=== PATIENT | female | born 1965 | race Caucasian/White ===

== ENCOUNTER → 2020-04-25 20:32 | Outpatient (REF) | payer OTHER, SELFPAY | LOC: HO.SL 20:32 | PROVIDERS: PCP Internal Medicine; Visit Provider Psychiatry & Neurology Neurology | DX: G47.9 Sleep disorder, unspecified (principal) | CPT/HCPCS: 95810 ==

== ENCOUNTER 2020-06-13 07:41 | Outpatient (REF) | payer OTHER, SELFPAY ==
[2020-06-13] VITALS (7 sets, daily range): BP systolic 112–141; BP diastolic 57–82; PULSE 58–77; RESP 16–18; TEMP 36.4–36.9; O2SAT 98–100; BMI 26.6
[2020-06-13] MEDS: Acetaminophen 325 MG TABLET 650 MG PO (09:00)
[2020-06-13 09:49] LABS: CSF Appearance Clear, Colorless; CSF Tube # 1
[2020-06-13 09:55] LABS: Glucose CSF 60 mg/dL
[2020-06-13 10:19] LABS: Appearance CSF CLEAR; CSF Monos 22 %; CSF Tube # 4; CSF Volume 1.8 ML; Color CSF COLORLESS; Lymphocytes CSF 78 %; Red Blood Cell CSF 0 MM*3; White Blood Cell CSF 2 MM*3
== END 2020-06-13 11:00 | disposition home or self-care (01) ==
LOC: HO.MS 07:41
PROVIDERS: PCP Internal Medicine; Visit Provider Psychiatry & Neurology Neurology
PROC: 009U3ZZ Drainage of Spinal Canal, Percutaneous Approach (ICD-10-PCS; CPT 62270; principal; 2020-06-13 08:00)
DX: G93.2 Benign intracranial hypertension (principal); G47.00 Insomnia, unspecified; R51.9 Headache, unspecified; H47.10 Unspecified papilledema; E66.3 Overweight
CPT/HCPCS: 62270; 82945; 84157; 87015; 87070; 87205; 89051

== ENCOUNTER 2020-07-07 12:26 | Outpatient (REF) | payer OTHER, SELFPAY | END 2020-07-07 12:27 | disposition home or self-care (01) | LOC: HO.LAB 12:26 | PROVIDERS: PCP Internal Medicine; Visit Provider Internal Medicine | DX: Z20.828 Contact with and (suspected) exposure to other viral communicable diseases (principal) | CPT/HCPCS: C9803; U0003 ==

== ENCOUNTER 2021-12-05 13:08 | Emergency (ER) | payer OTHER, SELFPAY ==
--- NOTE | 2021-12-05 | ECG_ITS ---
Test Reason : shortness of breath Blood Pressure : / mmHG Vent. Rate : 067 BPM Atrial Rate : 067 BPM P-R Int : 150 ms QRS Dur : 080 ms QT Int : 428 ms P-R-T Axes : 056 023 025 degrees QTc Int : 452 ms Normal sinus rhythm Normal ECG When compared with ECG of 06-AUG-2017 13:25, No significant change was found Referred By: Generic ED Physician Electronically Signed By:NATALY DAWSON MD
--- NOTE | ~2021-12-05 | XR_ITS ---
EXAMINATION: CHEST SINGLE VIEW. RIGHT KNEE 2 VIEWS CLINICAL INFORMATION: Pain. Pain COMPARISON: None TECHNIQUE: Single view of the chest. 2 views of the right knee. FINDINGS: Chest: Lungs clear. Heart and pulmonary vessels are normal. I do not see pneumothorax. 2 views of the right knee show no joint effusion, fracture, dislocation, or destructive process. XR/XR chest 1V IMPRESSION: Unremarkable studies.
--- NOTE | ~2021-12-05 | XR_ITS ---
EXAMINATION: CHEST SINGLE VIEW. RIGHT KNEE 2 VIEWS CLINICAL INFORMATION: Pain. Pain COMPARISON: None TECHNIQUE: Single view of the chest. 2 views of the right knee. FINDINGS: Chest: Lungs clear. Heart and pulmonary vessels are normal. I do not see pneumothorax. 2 views of the right knee show no joint effusion, fracture, dislocation, or destructive process. XR/XR knee RT 2V IMPRESSION: Unremarkable studies.
[2021-12-05 15:47] VITALS: BP 125/88; PULSE 72; RESP 18; TEMP 36.6; O2SAT 99; BMI 29.2
[2021-12-05 16:19] LABS: COVID-19 Test Negative (Negative); IDNOW Serial# 16C4AD1C
[2021-12-05 23:11] LABS: D Dimer High Sensitivity < 150 NG/ML
[2021-12-06 01:53] VITALS: BP 144/83; PULSE 82; RESP 16; TEMP 36.8; O2SAT 95
--- NOTE | 2021-12-06 02:47 | ED.GENADULT ---
HPI - General Adult General Chief complaint: General Medical Stated complaint: PAIN IN R KNEE, SHORTNESS OF BREATH, CHEST PAIN Time Seen by Provider: 12/05/21 16:46 Source: patient Mode of arrival: ambulatory History of Present Illness HPI narrative: 56-year-old female who presents with bilateral lower extremity discomfort without redness or swelling, denies shortness of breath, fever, chills and denies any recent travel. Patient states his his been ongoing for 1 week and her right knee has become progressively more painful. Related Data Allergies Allergy/AdvReac Type Severity Reaction Status Date / Time aspirin [ASA] Allergy Intermediate SWELLING Verified 12/05/21 15:46 Review of Systems Review of Systems: Pertinent positives and negatives as stated in HPI 10 point review of systems is otherwise negative. PMFSH Past Medical History Source: nursing notes reviewed Social History Social History Advance Directives: No Physical Exam ED Vital Signs: Vital Signs - 24 hr 12/05/21 15:47 12/06/21 01:53 Temperature 98 F 98.2 F Pulse Rate 72 82 Respiratory Rate 18 16 Blood Pressure 125/88 144/83 H Pulse Oximetry 99 95 BMI result Body Mass Index 29.2 VITAL SIGNS: Reviewed. GENERAL: Well developed, well nourished, in no acute distress. HEAD: Normocephalic/atraumatic EYES: PERRLA, EOMI EARS: Ext canals without abnormality OROPHARYNX: no oral lesions noted, posterior pharynx clear LUNGS: Normal breath sounds. No adventitious sounds or accessory muscle use. SpO2<99> CARDIOVASCULAR: Regular rate and rhythm without noted murmurs, no JVD or lower extremity edema. ABDOMEN: Soft, non-tender, non-distended with bowel sounds. MUSCULOSKELETAL: No tenderness, deformities, or effusions noted on gross inspection. EXTREMITIES: No cyanosis, clubbing or edema, no erythema/induration, no effusion noted to the right knee and no Green cyst appreciated on examination while patient was standing. SKIN: Inspection of the skin reveals no rashes NEUROLOGIC: Alert and oriented x 4. Strength and sensation to light touch were grossly intact x 4. Course Course Course Narrative: 56-year-old female with history and clinical presentation consistent with osteoarthritis, D-dimer was negative and review of all imaging studies without acute findings. Patient will receive Flaquito wrap to the right knee as well as 1 g of Tylenol. Patient is aware the plan and will be following up with her primary care provider. Medical Decision Making Lab Data Labs: Lab Results 12/05/21 12/05/21 Range/Units 15:56 22:45 D-Dimer High Sensitivty < 150 NG/ML COVID-19 ([facility]) Negative (Negative) COVID-19 Clin Com See Note Discharge Plan Discharge Clinical Impression: Bilateral leg pain, Pain in right knee Patient Disposition: Home, Self-Care Instructions: Leg Pain (ED), Knee Pain (ED), Osteoarthritis (ED) Additional Instructions: 1. Resume all home medications as prescribed. 2. Tylenol 1000 mg, orally, every 6 hours as needed for pain control. Do not exceed 4000 mg within 24 hours. 3. Continue to use the Flaquito wrap or an lhgq-knw-soerfae knee support until you are evaluated by your primary care provider. 4. Consider bpaf-kvc-kqkklbd lidocaine gel, 4%, for additional pain relief. 5. Follow-up with primary care provider in the next 1-2 days for re-evaluation. Return to the ER for worsening symptoms. Referrals: Hitesh Goldberg III, MD [Primary Care Provider] -
[2021-12-06] MEDS: Acetaminophen 325 MG TABLET 975 MG PO (03:27)
--- NOTE | 2021-12-06 03:28 | PC.NURSE ---
medicated per provider order.
== END 2021-12-06 03:29 | disposition home or self-care (01) ==
PROVIDERS: Emergency Provider Student in an Organized Health Care Education/Training Program; PCP Internal Medicine
DX: M25.561 Pain in right knee (principal); M79.605 Pain in left leg; M79.604 Pain in right leg; R06.02 Shortness of breath; Z20.822 Contact with and (suspected) exposure to COVID-19
CPT/HCPCS: 36415; 71045; 73560; 85379; 87635; 93005; 99283

== ENCOUNTER 2022-04-26 18:15 | Emergency (ER) | payer OTHER, SELFPAY ==
--- NOTE | ~2022-04-26 | XR_ITS ---
EXAMINATION: XR CHEST CLINICAL INFORMATION: Chest pain COMPARISON: 12/05/2021 TECHNIQUE: Frontal view of the chest was obtained. FINDINGS: The lungs are well-expanded. There is no focal consolidation, edema or effusion. No pneumothorax. The cardiomediastinal silhouette is within normal limits. No acute osseous abnormality. XR/XR chest 1V IMPRESSION: No acute pulmonary disease.
[2022-04-26 18:50] VITALS: BP 169/88; PULSE 84; RESP 16; TEMP 36.6; O2SAT 100; BMI 26.6
--- NOTE | 2022-04-26 18:55 | ECG_ITS ---
Test Reason : CHESTPAIN Blood Pressure : / mmHG Vent. Rate : 063 BPM Atrial Rate : 063 BPM P-R Int : 158 ms QRS Dur : 084 ms QT Int : 432 ms P-R-T Axes : 067 064 059 degrees QTc Int : 442 ms Normal sinus rhythm Nonspecific ST abnormality Abnormal ECG When compared with ECG of 05-DEC-2021 15:46, ST more depressed Lateral leads Referred By: Generic ED Physician Electronically Signed By:MARLEN OLSON MD
[2022-04-26] MEDS: Ondansetron ODT 4 MG TAB.RAPDIS TRANSLINGU (19:09)
[2022-04-26 19:12] LABS: MANUAL DIFF FLAG NO
[2022-04-26 19:19] LABS: Basophils Absolute Auto 0.1 X10*3/uL (0.0-0.2); Basophils Percent Auto 0.4 % (0-2); Eosinophils Absolute Auto 0.2 X10*3/uL (0.0-0.4); Eosinophils Percent Auto 1.3 % (0-4); Hematocrit 38.8 % (37.0-47.0); Hemoglobin 12.9 g/dl (12.0-16.0); Imm Gran Abs Auto 0.05 X10*3/uL (0.00-0.03); Imm Gran Pct Auto 0.4 % (0.0-0.4); Lymphocytes Absolute Auto 3.7 X10*3/uL (1.2-4.9); Lymphocytes Percent Auto 32.5 % (20-40); Mean Corpuscular HGB Conc 33.2 g/dl (31.0-35.0); Mean Corpuscular Hemoglobin 29.8 pg (27.0-33.0); Mean Corpuscular Volume 89.6 fL (80.0-98.0); Mean Platelet Volume 9.7 fL (9.4-12.3); Monocytes Absolute Auto 0.6 X10*3/uL (0.1-1.2); Monocytes Percent Auto 5.3 % (2-11); Neutrophils Absolute Auto 6.9 x10*3/uL (2.0-8.3); Neutrophils Percent Auto 60.1 % (45-73); Platelet Count 377 X10*3/uL (160-400); Red Blood Count 4.33 X10*6/uL (4.20-5.50); Red Cell Distribution Width 12.7 % (11.0-16.0); White Blood Count 11.5 X10*3/uL (4.8-10.8)
[2022-04-26 19:33] LABS: Alanine Aminotransferase 31 U/L (0-31); Albumin Level 4.7 g/dL (3.5-5.0); Alkaline Phosphatase 91 U/L (39-117); Anion Gap 13 (12-20); Aspartate Amino Transferase 18 U/L (5-31); Bilirubin Total 0.3 mg/dL (0.0-1.0); Blood Urea Nitrogen 14 mg/dL (9-16); Calcium 9.9 mg/dL (8.4-10.2); Carbon Dioxide 25 mmol/L (22-29); Chloride 108 mmol/L (96-108); Creatinine Clr Calc Pharmacy 68.9; Estimated Glomerular Filt Rate > 60; Glucose Random 95 mg/dL (60-115); Lipase 30 U/L (8-78); Magnesium 2.1 mg/dL (1.6-2.6); Sodium 142 mmol/L (135-145); Total Protein 6.9 g/dL (6.5-8.0)
[2022-04-26 19:35] LABS: Troponin-I High Sensitivity < 3.5 ng/L (<3.5-17.0)
--- NOTE | 2022-04-27 00:02 | ED.CHESTPAIN ---
HPI - Chest Pain General Chief Complaint: Chest Pain Stated Complaint: dizziness,nausea Time Seen by Provider: 04/26/22 23:51 Source: patient Mode of arrival: ambulatory Limitations: no limitations History of Present Illness HPI narrative: 56-year-old female with a history of pseudotumor cerebri on diamox presents today with 2 episodes of chest pain which occurred earlier today while at rest. Patient describes the pain is of punching sensation to the left chest which lasted a 2nd and resolved. No associated symptoms when the pain came on. Patient has had some intermittent episodes over the last month. Two weeks ago she had an echo and a stress test at [facility] which patient tells me was normal. She does have an upcoming appointment to see a batt packer. She reports since having the pain she has had some nausea and dizziness but these symptoms are actually improved than previously. No associated vomiting, diaphoresis, palpitations. Patient denies any recent travel or sick contact. No OCP use. Related Data Allergies Allergy/AdvReac Type Severity Reaction Status Date / Time aspirin [ASA] Allergy Intermediate SWELLING Verified 12/05/21 15:46 Review of Systems Review of Systems: Yes all other systems are reviewed and are negative Constitutional: Constitutional: Reports no additional constitutional complaints, Denies body ache(s), Denies chills, Denies fever(s), Denies headache(s) and Denies weakness Eyes: Eyes: Reports no additional eye complaints and Denies change in vision ENT: Reports system reviewed and no additional complaints, except as documented, Reports dizziness, Denies headache(s), Denies nasal congestion, Denies nasal discharge and Denies neck pain Cardiovascular: Cardiovascular: Reports no additional cardiovascular complaints, Reports chest pain, Denies leg edema and Denies dyspnea Respiratory: Respiratory: Reports no additional respiratory complaints, Denies cough and Denies dyspnea Gastrointestinal: Gastrointestinal: Reports no additional gastrointestinal complaints, Denies abdominal pain, Denies diarrhea, Reports nausea and Denies vomiting Genitourinary: Genitourinary: Reports no additional female genitourinary complaints and Denies urinary incontinence Musculoskeletal: Musculoskeletal: Reports no additional musculoskeletal complaints, Denies back pain, Denies arthralgias, Denies joint swelling, Denies neck pain, Denies numbness and Denies tingling Integumentary/Breasts: Skin/Breast: Reports system reviewed and no additional complaints, except as docu and Denies rash Neurologic: Reports system reviewed and no additional complaints, except as documented, Denies Abnormal speech present, Reports dizziness, Denies headache(s), Denies numbness, Denies tingling and Denies weakness PMFSH Past Medical History Attestation statement: The following information was validated with the patient. Source: old records reviewed and nursing notes reviewed Social History Social History Advance Directives: No Advance Directives Information Provided: No Physical Exam Vital Signs: Vital Signs: Last Vital Signs Temp 97.8 F 04/26/22 18:50 Pulse 84 04/26/22 18:50 Resp 16 04/26/22 18:50 BP 169/88 H 04/26/22 18:50 Pulse Ox 100 04/26/22 18:50 O2 Del Method 04/26/22 18:50 BMI result Body Mass Index 26.6 Const: General: cooperative, healthy appearing, comfortable and no acute distress Orientation/consciousness: patient oriented x3 Limitations: no limitations HEENT: Head: Yes normal to inspection Ears: hearing grossly normal bilaterally General nose exam: Normal external nose present Face and sinus: Yes normal facial exam Mouth: Normal oral and palatal mucosa present Throat: Yes posterior oropharynx normal Eyes: General: appearance normal, both eyes and all related structures Pupils: Equal, round and reactive pupils present Neck: Neck: Yes normal visual inspection Chest: Chest palpation & inspection: normal inspection of the chest Resp: Effort & Inspection: normal respiratory effort Auscultation: clear to auscultation bilaterally Cardio: Rate: regular rate Rhythm: regular rhythm Peripheral pulses: Peripheral pulses 2+ throughout GI: Inspection: Yes normal to inspection Palpation (GI): Soft to palpation and nontender Auscultation: normal bowel sounds Back/Spine/Pelvis: Thoracic/Lumbar Spine: thoracic and lumbar spine normal to inspection Skin: General skin exam: no rashes or lesions noted Neuro: General: patient oriented x3, no focal motor deficits and normal sensation to monofilament Cranial nerves: Yes Equal, round and reactive pupils present Cognition (Neuro): normal cognition Speech: No Abnormal speech present Gait exam (Neuro): Normal gait present Motor exam (neuro): 5/5 motor strength present throughout Extrem: General: Yes normal to inspection, Yes no pedal edema and Yes no calf tenderness Course Course Course Narrative: Labs are unremarkable including troponin. EKG shows no ischemic changes. Chest x-ray is negative for any infection. Plan for discharge home with patient's follow-up with her batt packer outpatient. Reviewed worrisome signs and symptoms of when to return to the emergency room. Comfortable discharge home. MDM - Chest Pain MDM Narrative Medical decision making narrative: 56 yo female who presents with intermittent left-sided chest pain over the last month with negative stress test and echo per patient with after coming appointment with Cardiology at [facility]. Patient had some brief episodes today which occurred while at rest. Low concern for ACS Perc is 0. Will check labs, EKG, chest x-ray Medical Records Data Attestation: I reviewed the patient's medical records. Lab Data Attestation: I reviewed the patient's lab results. Result diagrams: 04/26/22 19:05 04/26/22 19:05 Labs: Lab Results 04/26/22 04/26/22 04/26/22 Range/Units 19:05 19:05 19:05 WBC 11.5 H (4.8-10.8) X10*3/uL RBC 4.33 (4.20-5.50) X10*6/uL Hgb 12.9 (12.0-16.0) g/dl Hct 38.8 (37.0-47.0) % MCV 89.6 (80.0-98.0) fL MCH 29.8 (27.0-33.0) pg MCHC 33.2 (31.0-35.0) g/dl RDW 12.7 (11.0-16.0) % Plt Count 377 (160-400) X10*3/uL MPV 9.7 (9.4-12.3) fL Immature Gran % (Auto) 0.4 (0.0-0.4) % Neut % (Auto) 60.1 (45-73) % Lymph % (Auto) 32.5 (20-40) % Thurston % (Auto) 5.3 (2-11) % Eos % (Auto) 1.3 (0-4) % Baso % (Auto) 0.4 (0-2) % Lymph # (Auto) 3.7 (1.2-4.9) X10*3/uL Thurston # (Auto) 0.6 (0.1-1.2) X10*3/uL Eos # (Auto) 0.2 (0.0-0.4) X10*3/uL Baso # (Auto) 0.1 (0.0-0.2) X10*3/uL Abs Immat Gran (auto) 0.05 H (0.00-0.03) X10*3/uL Absolute Neuts (auto) 6.9 (2.0-8.3) x10*3/uL Absolute Nucleated RBC 0.000 (0.0-0.012) X10*3/uL Nucleated RBC % (auto) 0.0 (0.0-0.2) /100WBC Sodium 142 (135-145) mmol/L Potassium 4.0 (3.3-5.1) mmol/L Chloride 108 (96-108) mmol/L Carbon Dioxide 25 (22-29) mmol/L Anion Gap 13 (12-20) BUN 14 (9-16) mg/dL Creatinine 0.91 (0.5-1.4) mg/dL Estim Creat Clear Calc 68.9 Estimated GFR > 60 Random Glucose 95 (60-115) mg/dL Calcium 9.9 (8.4-10.2) mg/dL Magnesium 2.1 (1.6-2.6) mg/dL Total Bilirubin 0.3 (0.0-1.0) mg/dL AST 18 (5-31) U/L ALT 31 (0-31) U/L Alkaline Phosphatase 91 (39-117) U/L Troponin I High Sens < 3.5 (<3.5-17.0) ng/L Total Protein 6.9 (6.5-8.0) g/dL Albumin 4.7 (3.5-5.0) g/dL Lipase 30 (8-78) U/L Imaging Data Chest x-ray: Attestation: I personally reviewed and interpreted this imaging study as follows: Radiologist's impression: [address] [address] XRay Report Signed Patient: Risa Robledo MR#: [id number] : 1965 Acct:[id number] Age/Sex: 56 / F ADM Date: 04/26/22 Loc: HO.ED Attending Dr: Ordering Physician: Nasima ED Physician Date of Service: 04/26/22 Procedure(s): XR chest 1V Accession Number(s): [id number] cc: Generic ED Physician~ EXAMINATION: XR CHEST CLINICAL INFORMATION: Chest pain COMPARISON: 12/05/2021 TECHNIQUE: Frontal view of the chest was obtained. FINDINGS: The lungs are well-expanded. There is no focal consolidation, edema or effusion. No pneumothorax. The cardiomediastinal silhouette is within normal limits. No acute osseous abnormality. XR/XR chest 1V IMPRESSION: No acute pulmonary disease. ? ? ECG Data ECG #1: Attestation: I personally reviewed and interpreted this ECG as follows: ECG interpretation date: 04/27/22 ECG interpretation time: 18:57 Interpretation: Normal sinus rhythm with a rate of 63, normal RI, normal QRS, normal QT Discharge Plan Discharge Clinical Impression: Chest pain Patient Disposition: Home, Self-Care Instructions: Chest Pain (DC) Additional Instructions: Your blood work, EKG and chest x-ray are reassuring Follow-up with your plan to see Cardiology outpatient Referrals: Hitesh Goldberg III, MD [Primary Care Provider] - Interventions: ED Discharge Assessment Last Done: 04/27/22 00:11 Discharge Date/Time: 04/27/22 00:13
== END 2022-04-27 00:13 | disposition home or self-care (01) ==
PROVIDERS: Emergency Provider Emergency Medicine; PCP Internal Medicine
DX: R07.89 Other chest pain (principal); R42 Dizziness and giddiness; R11.2 Nausea with vomiting, unspecified; Z79.899 Other long term (current) drug therapy
CPT/HCPCS: 36415; 71045; 80053; 83690; 83735; 84484; 85025; 93005; 99283

== ENCOUNTER 2023-11-23 10:39 | Outpatient (AMB) | payer OTHER, SELFPAY ==
[2023-11-23 12:37] VITALS: BP 118/70; PULSE 57; TEMP 37.1; O2SAT 99; BMI 28.5
--- NOTE | 2023-11-23 12:37 | MHC.OFFWIV ---
Intake Vital Signs 11/23/23 12:37 Height 5 ft 5 in Weight 171 lb BMI 28.5 BP 118/70 Blood Pressure Location Lt brachial Position Sitting Pulse 57 Pulse Source Pulse Oximeter Temp 98.7 F Temp Source Oral Pulse Oximetry (%) 99 Oxygen Delivery Method Room Air Intake Visit Reasons: DIRECTOR TRIAL lft foot toenail fell off/irritated Intake Note: Pt is here today Lt foot middle toe red and swollen Allergies aspirin [ASA] Allergy (Intermediate, Verified 12/25/23 14:21) SWELLING HPI DIRECTOR TRIAL lft foot toenail fell off/irritated HPI Details Patient is a 58 year female who comes to the walk-in clinic complaining of redness and mild swelling and tenderness to the left 3rd toenail area. She does not know why the toenail fell off, and denies acute trauma, but it has been tender and red and a little swollen. [facility] Social History Comment: Tylenol was given at 0900 Advance Directives: No Advance Directives Information Provided: No Physical Exam Vital Signs: Last Vital Signs Temp 98.7 F 11/23/23 12:37 Pulse 57 11/23/23 12:37 BP 118/70 11/23/23 12:37 Pulse Ox 99 11/23/23 12:37 Oxygen Delivery Method Room Air 11/23/23 12:37 BMI result Body Mass Index 28.5 Skin Other: Patient has small nail starting to regrow to the left 3rd nail bed, with no laceration or other trauma. There is air erythema edema to the medial aspect of the distal toe, only mildly tender to touch. No appreciable warmth. Sensation is intact and pedal and pulse is normal. Heavy toenail [place]an limits view of nail changes to the other toes, however there is some thickening of the big toe that suggest possible underlying fungal involvement. Assessment & Plan Assessment & Plan (1) Cellulitis: Code(s): L03.90 - Cellulitis, unspecified Qualifiers: Site of cellulitis of extremity: toe Laterality: left Site of cellulitis: extremity Qualified Code(s): L03.032 - Cellulitis of left toe Plan Patient with apparent cellulitis to the distal aspect of the left 3rd toe. The toenail looks like it fell and is already starting to grow back. There is questionable fungal growth on other toenails, however they have heavy [place] covering them and it limits view of fungal changes. We discussed starting an antibiotic to help with the infection, and she can soak her foot a few times a day in Epsom salt or warm soapy water to help with the regrowth of the toenail. There was no apparent acute trauma, and she denies diabetes. Her sensation is intact and she has no pain with ambulation, so underlying bony trauma unlikely. Follow up as needed if symptoms persist or worsen Medications: New cephalexin 500 mg PO BID 20 caps 0RF 10 days Coding Level of Care Code New Pt Level 4 (22829) Diagnoses Cellulitis of toe of left foot L03.032 Site of cellulitis of extremity: toe Laterality: left Site of cellulitis: extremity
== END 2023-11-23 13:43 | disposition home or self-care (01) ==
PROVIDERS: PCP Internal Medicine; Visit Provider Physician Assistant Medical
DX: L03.032 Cellulitis of left toe (principal)
CPT/HCPCS: 99051; 99204

== ENCOUNTER 2023-12-25 14:15 | Emergency (ER) | payer OTHER, SELFPAY ==
--- NOTE | ~2023-12-25 | XR_ITS ---
EXAMINATION: XR FOOT, LEFT CLINICAL INFORMATION: Left-sided foot pain COMPARISON: None available. TECHNIQUE: AP, lateral, and oblique views of the left foot. FINDINGS: There is an oblique mildly displaced fracture of the midshaft of the proximal phalanx of the fourth toe. Fracture does not involve the articular surfaces of bone. No dislocation. XR/XR foot LT min 3V IMPRESSION: Oblique mildly displaced fracture of the proximal phalanx of fourth toe.
[2023-12-25 14:17] VITALS: BP 150/86; PULSE 93; RESP 18; TEMP 36.9; O2SAT 99; BMI 28.2
--- NOTE | 2023-12-25 14:18 | ED_ITS ---
HPI - General Adult General Chief complaint: Extremity Injury, Lower Stated complaint: l foot inj Time Seen by Provider: 12/25/23 14:40 Source: patient Mode of arrival: ambulatory Limitations: no limitations History of Present Illness ED Provider: Josiah Spencer PA-C HPI narrative: 58 yo fw/o pmhx presents w/ left fourth toe pain since earlier today she states that she stubbed her toe on a chair now is having severe pain and difficulties w/ ambulating. Thinks her finger looks swollen. Pain 04/16. Denies cp, sob, numbness, tingling. No other injuries. Related Data Home Medications ?Medication ?Instructions ?Recorded ?Confirmed atorvastatin 20 mg tablet 20 mg PO DAILY 11/23/23 cetirizine 10 mg tablet mg PO 11/23/23 omeprazole 20 mg capsule,delayed 20 mg PO DAILY 11/23/23 release Previous Rx's ?Medication ?Instructions ?Recorded cephalexin 500 mg capsule 500 mg PO BID 10 days #20 caps 11/23/23 Allergies Allergy/AdvReac Type Severity Reaction Status Date / Time aspirin [ASA] Allergy Intermediate SWELLING Verified 12/25/23 14:21 Review of Systems Review of Systems: Yes all other systems are reviewed and are negative PMFSH Past Medical History Attestation statement: The following information was validated with the patient. Source: old records reviewed and nursing notes reviewed Social History Social History Comment: Tylenol was given at 0900 Physical Exam ED Vital Signs: Vital Signs - 24 hr 12/25/23 14:17 Temperature 98.4 F Pulse Rate 93 Respiratory Rate 18 Blood Pressure 150/86 H Pulse Oximetry 99 Oxygen Delivery Method Room Air BMI result Body Mass Index 28.2 VSS Appearance: Alert.? Oriented X3.? No acute distress.? Head: Normocephalic, atraumatic, no step-offs or deformities Eyes: Pupils equal, round and reactive to light.? CVS: Normal heart rate and rhythm.? Pulses normal.? Respiratory: No respiratory distress.? Breath sounds normal.? Abdomen: Soft and nontender.? Skin: Skin warm and dry.? Normal skin color.? Normal skin turgor.? Extremities: No lower extremity edema.? No calf ttp. 5/5 strength to bilateral upper and lower extremities 2+ DP,AT,PT pulses equal and b/l. Normal sensation distally. TTP to left second toe w/ overlying swelling. Full rom to all toes w/ discomfort w/ rom of left second toe. Neuro: Oriented X 3.? No motor deficit.? No sensory deficit. CN 2-12 intact Course Course Course Narrative: This is an RME done by VITA Spencer: Additional HPI, ROS, PE not included below will be deferred to primary provider. 58 yo f presents w/ left fourth toe pain since earlier stubberd her toe on a chair now severe pain and difficulties ambulating Appearance: Alert.? Oriented X3.? No acute cardiopulmonary distress distress.? Head: Normocephalic, atraumatic, no step-offs or deformities Neck: Normal inspection.? Neck supple.? CVS: Pulses normal.? Respiratory: No respiratory distress.? Abdomen: Soft and nontender.? Skin: ? Normal skin color. Extremities: 5/5 strength to bilateral upper and lower extremities + swelling to left 4th digit. No ecchymosis normal rom to all toes. ambulatory w/ steady gait slight limp favorng r side Neuro: Oriented X 3.? No motor deficit.? No sensory deficit. Reevaluation(s) Reevaluation #1: + fx noted on xray r second toe where patient has pain. Will give Tylenol. Will also give postop shoe, crutches. Educated patient on diagnosis and treatment plan, answered all question, patient verbalizes understanding. At this time patient will be discharged home, advised to return with new or worsening symptoms. Educated on worrisome signs and symptoms and when to return. At this time I feel comfortable discharge home. Time: 14:45 Medical Decision Making Medical Decision Making [facility] Narrative: [id number] 58 year old female presents w/ left second toe pain since earlier today sp stubbing her toe on a chair PE 2+ DP,AT,PT pulses equal and b/l. Normal sensation distally. TTP to left second toe w/ overlying swelling. Full rom to all toes w/ discomfort w/ rom of left second toe. Hx and pe concerning for fx possible dislocaiton. No signs of NV compromise or threat to limb. No signs of compartment syndrome Plan- imaging tylenol Differential Diagnosis Differential Diagnoses: The differential diagnosis associated with the presentation includes Hx and pe concerning for fx possible dislocaiton. No signs of NV compromise or threat to limb. No signs of compartment syndrome Admission/Observation Consideration of admission/observation: Escalation of care including admission/observation considered no indication Independent Interpretation I performed an independent interpretation of an: Plain X-Ray Radiology Impression Discussion of test interpretation with radiology: I have reviewed the radiologist's reading. External Record Review External record reviewed: Office record and Outpatient record Prescription Management I considered prescription management with: Pain Medication (tylenol ) Critical Care Time Critical Care Time Critical Care Time: No Discharge Plan Discharge Clinical Impression: Fracture of toe Patient Disposition: Home, Self-Care Instructions: Crutch Instructions (ED), Foot Fracture in Adults (ED), R.I.C.E. Treatment (ED), Post Surgical Shoe (ED) Additional Instructions: Take your medications as prescribed. If you were prescribed antibiotics today, it is important that you take your medication to their entirety, do not skip any doses, do not finish them early. Follow-up with your primary care provider this week. Return to the emergency department with new or worsening symptoms. Such as fevers, chills, chest pain, shortness of breath, nausea, vomiting, dizziness, headache, vision changes, lethargy In case of emergency call 911 Prescriptions: No Action atorvastatin 20 mg tablet 20 mg PO DAILY cetirizine 10 mg tablet PO omeprazole 20 mg capsule,delayed release(DR/EC) 20 mg PO DAILY cephalexin 500 mg capsule 500 mg PO BID 10 Days Qty: 20 0RF Referrals: [facility] [Provider Group] - 1 week Hitesh Goldberg III, MD [Primary Care Provider] - 2 days Print Language: Citizen Of [place]
[2023-12-25] MEDS: Acetaminophen 325 MG TABLET 975 MG PO (15:09)
[2023-12-25 15:38] VITALS: BP 150/86; PULSE 93; RESP 18; TEMP 36.9; O2SAT 99
== END 2023-12-25 15:39 | disposition home or self-care (01) ==
LOC: HO.ED 15:05
PROVIDERS: Emergency Provider Emergency Medicine; PCP Internal Medicine
DX: S92.502A Displaced unspecified fracture of left lesser toe(s), initial encounter for closed fracture (principal); Y29.XXXA Contact with blunt object, undetermined intent, initial encounter; Y93.9 Activity, unspecified; Y92.9 Unspecified place or not applicable; Y99.8 Other external cause status; Z79.899 Other long term (current) drug therapy
CPT/HCPCS: 73630; 99283

== ENCOUNTER 2024-01-12 13:27 | Emergency (ER) | payer OTHER, SELFPAY ==
--- NOTE | ~2024-01-12 | XR_ITS ---
EXAMINATION: XR CHEST CLINICAL INFORMATION: Chest pressure COMPARISON: April 2022 TECHNIQUE: 2 views of the chest were obtained. FINDINGS: No significant abnormality is noted involving the heart, lungs, mediastinum, bony thorax or soft tissues. XR/XR chest 2V IMPRESSION: Unremarkable examination, without interval change.
[2024-01-12 13:31] VITALS: BP 174/90; PULSE 65; RESP 18; TEMP 36.7; O2SAT 99; BMI 28.1
--- NOTE | 2024-01-12 13:34 | ECG_ITS ---
Test Reason : CHEST PRESSURE Blood Pressure : / mmHG Vent. Rate : 067 BPM Atrial Rate : 067 BPM P-R Int : 154 ms QRS Dur : 076 ms QT Int : 410 ms P-R-T Axes : 033 021 019 degrees QTc Int : 433 ms Normal sinus rhythm Normal ECG When compared with ECG of 26-APR-2022 18:57, No significant change was found Referred By: Generic ED Physician Electronically Signed By:Nicholas Romero
[2024-01-12 13:46] LABS: MANUAL DIFF FLAG NO
[2024-01-12 13:56] LABS: INTERNATIONAL NORM RATIO 0.9 (0.9-1.1); Prothrombin Time 11.2 SEC (11.1-13.3)
[2024-01-12 14:02] LABS: Alanine Aminotransferase 63 U/L (0-31); Albumin Level 4.6 g/dL (3.5-5.0); Alkaline Phosphatase 110 U/L (39-117); Anion Gap 15 (12-20); Aspartate Amino Transferase 28 U/L (5-31); Bilirubin Total 0.3 mg/dL (0.0-1.0); Blood Urea Nitrogen 13 mg/dL (9-16); Calcium 10.2 mg/dL (8.4-10.2); Carbon Dioxide 27 mmol/L (22-29); Chloride 106 mmol/L (96-108); Creatinine Clr Calc Pharmacy 74.6; Estimated Glomerular Filt Rate > 60; Glucose Random 99 mg/dL (60-115); Potassium 3.9 mmol/L (3.3-5.1); Sodium 144 mmol/L (135-145); Total Protein 7.1 g/dL (6.5-8.0)
[2024-01-12 14:04] LABS: Basophils Percent Auto 0.2 % (0-2); Eosinophils Absolute Auto 0.1 X10*3/uL (0.0-0.4); Eosinophils Percent Auto 0.9 % (0-4); Hematocrit 39.9 % (37.0-47.0); Hemoglobin 13.3 g/dl (12.0-16.0); Imm Gran Abs Auto 0.05 X10*3/uL (0.00-0.03); Imm Gran Pct Auto 0.5 % (0.0-0.4); Lymphocytes Absolute Auto 2.9 X10*3/uL (1.2-4.9); Lymphocytes Percent Auto 30.3 % (20-40); Mean Corpuscular HGB Conc 33.3 g/dl (31.0-35.0); Mean Corpuscular Volume 89.9 fL (80.0-98.0); Mean Platelet Volume 9.5 fL (9.4-12.3); Monocytes Absolute Auto 0.4 X10*3/uL (0.1-1.2); Monocytes Percent Auto 4.4 % (2-11); Neutrophils Absolute Auto 6.1 x10*3/uL (2.0-8.3); Neutrophils Percent Auto 63.7 % (45-73); Platelet Count 351 X10*3/uL (160-400); Red Blood Count 4.44 X10*6/uL (4.20-5.50); Red Cell Distribution Width 12.6 % (11.0-16.0); White Blood Count 9.5 X10*3/uL (4.8-10.8)
[2024-01-12 14:09] LABS: Troponin-I High Sensitivity < 2.7 ng/L (<3.5-17.0)
--- NOTE | 2024-01-12 14:23 | ED_ITS ---
HPI - Chest Pain General Chief Complaint: Chest Pain Stated Complaint: high bp Time Seen by Provider: 01/12/24 14:23 Source: patient and banking attorney (all interactions with this patient were facilitated with an [facility] machine i trimmer) Mode of arrival: ambulatory Limitations: language barrier (all interactions with this patient were facilitated with an [facility] machine i trimmer) History of Present Illness ED Provider: Shannon Meredith PA-C HPI narrative: Patient is a 58 year old assigned female at with no reported medical history presenting to the emergency department today with chest pressure and nausea. Patient states that over the last 3 days she has had chest pressure and nausea. Patient denies any dizziness, lightheadedness, abdominal pain, vomiting, fever, chills, blurry vision, double vision, loss of vision, difficulty breathing, shortness of breath, back pain, night sweats, pain with urination, increased urinary frequency, increased urinary urgency, blood in her urine or stool, syncope or a near syncopal episode, recent trauma or falls, bowel incontinence, bladder incontinence, or any other complaints at this time. Pain radiation: none Relieving factors: nothing Exacerbating factors: nothing Associated symptoms: nausea Treatment prior to arrival: none Related Data Home Medications ?Medication ?Instructions ?Recorded ?Confirmed atorvastatin 20 mg tablet 20 mg PO DAILY 11/23/23 cetirizine 10 mg tablet mg PO 11/23/23 omeprazole 20 mg capsule,delayed 20 mg PO DAILY 11/23/23 release Previous Rx's ?Medication ?Instructions ?Recorded cephalexin 500 mg capsule 500 mg PO BID 10 days #20 caps 11/23/23 acetaminophen 325 mg capsule 650 mg (2 x 325 mg) PO TID PRN 12/25/23 (Tylenol) pain #30 caps Allergies Allergy/AdvReac Type Severity Reaction Status Date / Time aspirin [ASA] Allergy Intermediate SWELLING Verified 01/12/24 13:34 Review of Systems 2 Constitutional: Constitutional: Reports no additional constitutional complaints, Denies chills, Denies fever(s) and Denies night sweats Eyes: Eyes: Reports no additional eye complaints, Denies blurry vision, Denies change in vision, Denies diplopia, Denies eye discharge, Denies loss of vision and Denies eye pain ENT: Denies dizziness Cardiovascular: Cardiovascular: Reports no additional cardiovascular complaints, Reports chest pain, Denies lightheadedness, Denies Loss of Consciousness and Denies dyspnea Respiratory: Respiratory: Reports no additional respiratory complaints and Denies dyspnea Gastrointestinal: Gastrointestinal: Reports no additional gastrointestinal complaints, Denies abdominal pain, Denies melena, Denies hematochezia, Denies change in bowel habits, Denies change in stool character, Reports nausea and Denies vomiting Genitourinary: Genitourinary: Denies hematuria, Denies urinary frequency, Denies dysuria, Denies urinary incontinence, Denies urinary hesitancy and Denies urinary urgency Musculoskeletal: Musculoskeletal: Reports no additional musculoskeletal complaints, Denies numbness and Denies tingling Neurologic: Denies dizziness, Denies loss of vision, Denies numbness and Denies tingling Psychiatric: Psychiatric: Reports no additional psychiatric complaints Endocrine: Endocrine: Reports no additional endocrine complaints Hematologic/Lymphatic: Hematologic/Lymphatic: Reports no additional hematologic/lymphatic complaints Allergic/Immunologic: Allergic/Immunologic: Reports no additional allergic/immunologic complaints PMFSH Past Medical History Attestation statement: The following information was validated with the patient. Source: old records reviewed and nursing notes reviewed Social History Social History Comment: Tylenol was given at 0900 Smoked in Last 30 Days: No Use of substances other than those prescribed or required for medical reasons: No Advance Directives: No Advance Directives Information Provided: Yes Do you have a plan to hurt others: No Plan Patient : No Physical Exam 2 Vital Signs: Vital Signs: Last Vital Signs Temp 98.1 F 01/12/24 13:31 Pulse 60 01/12/24 15:01 Resp 18 01/12/24 15:01 BP 178/82 H 01/12/24 15:01 Pulse Ox 98 01/12/24 15:01 O2 Del Method Room Air 01/12/24 15:01 BMI result Body Mass Index 28.1 Const: General: cooperative, no acute distress, alert and awake Nutritional Appearance: well nourished Orientation/consciousness: patient oriented x3 Limitations: no limitations HEENT: Head: Yes normal to inspection and Yes atraumatic Ears: hearing grossly normal bilaterally and external ears normal General nose exam: Normal external nose present, no nasal discharge noted and no epistaxis Face and sinus: Yes normal facial exam, No abrasion and No laceration Mouth: Normal oral and palatal mucosa present, no drooling and no muffled voice Eyes: General: appearance normal, both eyes and all related structures P eriorbital: periorbital findings normal Eyelids: Yes eyelids normal C onjunctivae: conjunctivae normal Pupils: Equal, round and reactive pupils present EOM: EOMs intact bilaterally Neck: Neck: Yes normal visual inspection, Yes full ROM and Yes no lymphadenopathy Chest: Chest palpation & inspection: normal inspection of the chest Resp: Effort & Inspection: normal respiratory effort and able to speak in complete sentences GI: Inspection: Yes normal to inspection Neuro: General: patient oriented x3 and moves all extremities Cranial nerves: Yes Equal, round and reactive pupils present Cognition (Neuro): n ormal cognition Extrem: General: Yes normal to inspection, Yes full ROM and Yes capillary refill normal Psych: Appearance: grossly normal Mental Status: mental status grossly normal Affect: normal affect Attitude: cooperative Thought process: N ormal thought process present Thought content: Normal thought content present Insight: Good insight present (Psych) Medical Decision Making Medical Decision Making MDM Narrative: Patient is a 58 year old assigned female at with no reported medical history presenting to the emergency department today with chest pressure and nausea. Patient's physical exam was unremarkable. Patient's blood work was unremarkable. Patient's EKG was unremarkable. Patient's chest x-ray showed no acute process. Patient's COVID-19 test was positive. I explained my physical exam findings as well as all test results to the patient. I answered all questions asked by the patient. Patient had concerns around her elevated blood pressure readings while in the department. I assured the patient that at this time - this is not concerning. However, the patient should be keeping a blood pressure diary at home to share with her PCP. Elevated blood pressure over a longer period of time than a single ED visit would be concerning and she should address this with her PCP. I stressed the importance of the patient taking her medication as directed (either prescribed or as the over the counter packaging recommends). I stressed the importance of the patient following up with her primary care provider. I stressed the importance of the patient returning to the emergency department immediately if her symptoms were to worsen or if she were to develop any dizziness, shortness of breath, difficulty breathing, chest pain, blurry vision, loss of vision, nausea, vomiting, abdominal pain, fever, chills, back pain, or any other complaints. Patient verbalized agreement and understanding with this treatment plan and discharge. Differential Diagnosis Differential Diagnoses: The differential diagnosis associated with the presentation includes Chest pain NSTEMI STEMI COVID-19 Admission/Observation Consideration of admission/observation: Escalation of care including admission/observation considered Patient would have been admitted to the hospital had her work up had any findings where hospital admission was appropriate and her clinical presentation warranted hospital admission. Lab Data [facility] Lab Attestation statement: I reviewed the patient's lab results. My interpretation of these results are in the [facility] Rationale portion of this note. 01/12/24 13:42 01/12/24 13:42 Labs: Lab Results 01/12/24 Range/Units 13:42 WBC 9.5 (4.8-10.8) X10*3/uL RBC 4.44 (4.20-5.50) X10*6/uL Hgb 13.3 (12.0-16.0) g/dl Hct 39.9 (37.0-47.0) % MCV 89.9 (80.0-98.0) fL MCH 30.0 (27.0-33.0) pg MCHC 33.3 (31.0-35.0) g/dl RDW 12.6 (11.0-16.0) % Plt Count 351 (160-400) X10*3/uL MPV 9.5 (9.4-12.3) fL Immature Gran % (Auto) 0.5 H (0.0-0.4) % Neut % (Auto) 63.7 (45-73) % Lymph % (Auto) 30.3 (20-40) % Carroll % (Auto) 4.4 (2-11) % Eos % (Auto) 0.9 (0-4) % Baso % (Auto) 0.2 (0-2) % Lymph # (Auto) 2.9 (1.2-4.9) X10*3/uL Carroll # (Auto) 0.4 (0.1-1.2) X10*3/uL Eos # (Auto) 0.1 (0.0-0.4) X10*3/uL Baso # (Auto) 0.0 (0.0-0.2) X10*3/uL Abs Immat Gran (auto) 0.05 H (0.00-0.03) X10*3/uL Absolute Neuts (auto) 6.1 (2.0-8.3) x10*3/uL Absolute Nucleated RBC 0.000 (0.0-0.012) X10*3/uL Nucleated RBC % (auto) 0.0 (0.0-0.2) /100WBC PT 11.2 (11.1-13.3) SEC INR 0.9 (0.9-1.1) Sodium 144 (135-145) mmol/L Potassium 3.9 (3.3-5.1) mmol/L Chloride 106 (96-108) mmol/L Carbon Dioxide 27 (22-29) mmol/L Anion Gap 15 (12-20) BUN 13 (9-16) mg/dL Creatinine 0.84 (0.5-1.4) mg/dL Estim Creat Clear Calc 74.6 Estimated GFR > 60 Random Glucose 99 (60-115) mg/dL Calcium 10.2 (8.4-10.2) mg/dL Total Bilirubin 0.3 (0.0-1.0) mg/dL AST 28 (5-31) U/L ALT 63 H (0-31) U/L Alkaline Phosphatase 110 (39-117) U/L Troponin I High Sens < 2.7 (<3.5-17.0) ng/L Total Protein 7.1 (6.5-8.0) g/dL Albumin 4.6 (3.5-5.0) g/dL Influenza Type A (PCR) NEGATIVE (Negative) Influenza Type B (PCR) NEGATIVE (Negative) RSV RNA Qual (PCR) NEGATIVE (Negative) SARS-CoV-2 RNA (RT-PCR) POSITIVE A (Negative) Independent Interpretation I performed an independent interpretation of an: EKG and Plain X-Ray Interpretation: My interpretation is in agreement with the radiologist's impression of this imaging study. - EXAMINATION: XR CHEST CLINICAL INFORMATION: Chest pressure COMPARISON: April 2022 TECHNIQUE: 2 views of the chest were obtained. FINDINGS: No significant abnormality is noted involving the heart, lungs, mediastinum, bony thorax or soft tissues. XR/XR chest 2V IMPRESSION: Unremarkable examination, without interval change. Dictated By: Keagan Caicedo MD Signed By: Electronically signed by Keagan Caicedo MD 01/12/24 1549 - Vent. Rate: 067 BPM Atrial Rate: 067 BPM P-R Int: 154 ms QRS Dur: 076 ms QT Int: 410 ms P-R-T Axes: 033 021 019 degrees QTc Int: 433 ms Normal sinus rhythm Normal ECG When compared with ECG of 26-APR-2022 18:57, No significant change was found DD/ 1333 Radiology Impression Discussion of test interpretation with radiology: I have reviewed the radiologist's reading. Discharge Plan Discharge Clinical Impression: COVID-19, Elevated BP without diagnosis of hypertension Patient Disposition: Home, Self-Care Instructions: COVID-19 (Coronavirus Disease 2019) (ED) Additional Instructions: Follow up with your primary care provider. Return to the emergency department immediately if your symptoms worsen or if you develop any dizziness, shortness of breath, difficulty breathing, chest pain, blurry vision, loss of vision, nausea, vomiting, abdominal pain, fever, chills, back pain, or any other complaints. Reece?seguimiento?con marino m?dico de atenci?n primaria. Acuda inmediatamente al servicio de urgencias si tim s?ntomas empeoran o si presenta falta de aliento, dificultad para respirar, dolor tor?cico, mareos, aturdimiento, dolor de espalda, dolor abdominal, fiebre, escalofr?os o cualquier otro s?ntoma. Start a blood pressure diary and share it with your PCP. Lleve un diario de la tensi?n arterial y comp?rtalo con marino m?dico de cabecera. Prescriptions: No Action acetaminophen [Tylenol] 325 mg capsule 650 mg PO TID PRN (Reason: pain) Qty: 30 0RF atorvastatin 20 mg tablet 20 mg PO DAILY cetirizine 10 mg tablet PO omeprazole 20 mg capsule,delayed release(DR/EC) 20 mg PO DAILY cephalexin 500 mg capsule 500 mg PO BID 10 Days Qty: 20 0RF Referrals: Hitesh Goldberg III, MD [Primary Care Provider] - Print Language: Togolese
[2024-01-12 14:52] LABS: Influenza A PCR NEGATIVE (Negative); Influenza B PCR NEGATIVE (Negative); Resp Syncy Virus RNA Qual PCR NEGATIVE (Negative); SARS COV2 PCR INHOUSE POSITIVE (Negative)
[2024-01-12 15:01] VITALS: BP 178/82; PULSE 60; RESP 18; O2SAT 98
[2024-01-12 16:19] VITALS: BP 146/79; PULSE 62; RESP 15; TEMP 36.8; O2SAT 97
== END 2024-01-12 16:15 | disposition home or self-care (01) ==
PROVIDERS: Emergency Provider Emergency Medicine; PCP Internal Medicine
DX: U07.1 COVID-19 (principal); R03.0 Elevated blood-pressure reading, without diagnosis of hypertension; R07.89 Other chest pain; R11.0 Nausea
CPT/HCPCS: 0241U; 71046; 80053; 84484; 85025; 85610; 93005; 99283; 99285

== ENCOUNTER → 2024-01-12 13:34 | Outpatient (BNV) | payer OTHER, SELFPAY | PROVIDERS: Emergency Provider Emergency Medicine; PCP Internal Medicine; Visit Provider Internal Medicine Cardiovascular Disease | DX: R07.9 Chest pain, unspecified (principal) | CPT/HCPCS: 93010 ==

== ENCOUNTER 2024-05-04 09:10 | Outpatient (REF) | payer OTHER, SELFPAY ==
[2024-05-04 09:47] LABS: MANUAL DIFF FLAG NO
[2024-05-04 10:07] LABS: Basophils Absolute Auto 0.1 X10*3/uL (0.0-0.2); Basophils Percent Auto 0.6 % (0-2); Eosinophils Absolute Auto 0.2 X10*3/uL (0.0-0.4); Eosinophils Percent Auto 1.5 % (0-4); Hematocrit 39.2 % (37.0-47.0); Hemoglobin 12.7 g/dl (12.0-16.0); Imm Gran Abs Auto 0.08 X10*3/uL (0.00-0.03); Imm Gran Pct Auto 0.7 % (0.0-0.4); Lymphocytes Absolute Auto 3.1 X10*3/uL (1.2-4.9); Lymphocytes Percent Auto 27.1 % (20-40); Mean Corpuscular HGB Conc 32.4 g/dl (31.0-35.0); Mean Corpuscular Hemoglobin 29.8 pg (27.0-33.0); Mean Platelet Volume 9.6 fL (9.4-12.3); Monocytes Absolute Auto 0.7 X10*3/uL (0.1-1.2); Monocytes Percent Auto 5.7 % (2-11); Neutrophils Absolute Auto 7.5 x10*3/uL (2.0-8.3); Neutrophils Percent Auto 64.4 % (45-73); Platelet Count 378 X10*3/uL (160-400); Red Blood Count 4.26 X10*6/uL (4.20-5.50); Red Cell Distribution Width 13.2 % (11.0-16.0); White Blood Count 11.6 X10*3/uL (4.8-10.8)
[2024-05-04 10:31] LABS: Estimated Average Glucose 108 mg/dL; Hemoglobin A1C 119.9668 umol/L; Hemoglobin A1c % 5.4 % (<6.0); Total Hemoglobin (HGBA1C) 3367.6978 umol/L
[2024-05-04 10:55] LABS: Alanine Aminotransferase 49 U/L (0-31); Amylase 75 U/L (28-100); Anion Gap 8 (12-20); Aspartate Amino Transferase 34 U/L (5-31); Carbon Dioxide 28 mmol/L (22-29); Chloride 107 mmol/L (96-108); Cholesterol 182 mg/dL (<200); Estimated Glomerular Filt Rate > 60; HDL Cholesterol 64 mg/dL (>40); LDL Cholesterol Calculated 84 mg/dL (<100); Lipase 30 U/L (8-78); Potassium 3.9 mmol/L (3.3-5.1); Sodium 139 mmol/L (135-145); Triglycerides 174 mg/dL (<150)
[2024-05-04 11:04] LABS: Syphilis Screen Nonreactive (Nonreactive)
[2024-05-04 11:11] LABS: HBsAGNum1 0.28 S/CO (0.00-0.99); HIV AB/AG Nonreactive (Nonreactive); HIV Num 1 0.06 S/CO (0.00-0.99); Hepatitis B Surface Antigen Negative (Negative); ~HepC Num1 0.09 S/CO (0.00-0.79); ~Hepatitis C Antibody Nonreactive (Nonreactive)
[2024-05-04 11:13] LABS: Thyroid Stimulating Hormone 3.45 uIU/mL (0.32-4.0)
[2024-05-04 13:42] LABS: CT PCR NOT DETECTED (Not Detect.); NG PCR NOT DETECTED (Not Detect.)
[2024-05-12 14:59] LABS: FIB-ALT 34 U/L (6-29); FIB-Alpha-2-Macroglobulin 152 mg/dL (106-279); FIB-Apolipoprotein A1 195 mg/dL (101-198); FIB-GGT 29 U/L (3-70); FIB-Haptoglobin 182 mg/dL (43-212); FIB-Total Bilirubin 0.3 mg/dL (0.2-1.2); Liver Fibrosis Score 0.05; Liver Fibrosis Stage F0; Nec Inflam Act Grade A0; Nec Inflam Act Score 0.13; Reference ID 5185995
== END 2024-05-04 09:11 | disposition home or self-care (01) ==
LOC: HO.LAB 09:10
PROVIDERS: PCP Internal Medicine; Visit Provider Internal Medicine Infectious Disease
DX: K76.0 Fatty (change of) liver, not elsewhere classified (principal); Z68.30 Body mass index [BMI] 30.0-30.9, adult
CPT/HCPCS: 80051; 80061; 81596; 82150; 82565; 83036; 83690; 84439; 84443; 84450; 84460; 85025; 86780; 86803; 87340; 87389; 87491; 87591

== ENCOUNTER 2024-10-06 09:53 | Outpatient (REF) | payer OTHER, SELFPAY ==
[2024-10-06 11:09] LABS: Alanine Aminotransferase 33 U/L (0-31); Albumin Level 4.4 g/dL (3.5-5.0); Alkaline Phosphatase 77 U/L (39-117); Anion Gap 10 (12-20); Aspartate Amino Transferase 22 U/L (5-31); Bilirubin Total 0.3 mg/dL (0.0-1.0); Blood Urea Nitrogen 14 mg/dL (9-16); Calcium 9.6 mg/dL (8.4-10.2); Carbon Dioxide 25 mmol/L (22-29); Chloride 109 mmol/L (96-108); Cholesterol 156 mg/dL (<200); Estimated Glomerular Filt Rate > 60; Glucose Random 92 mg/dL (60-115); HDL Cholesterol 50 mg/dL (>40); LDL Cholesterol Calculated 73 mg/dL (<100); Potassium 4.2 mmol/L (3.3-5.1); Sodium 140 mmol/L (135-145); Total Protein 6.7 g/dL (6.5-8.0); Triglycerides 165 mg/dL (<150)
--- OUTSIDE RECORDS SUMMARY | 2024-10-06 11:33 | XMS_ITS | Encounter Summary ---
Author Organization [facility] Address [address] [place] [address] Care Team Providers Care Sheet Writer Name Role Phone Hitesh Goldberg MD Primary Care Provider Encounter Details Date Type Department Care Team (Late Contact Info) Description 05/26/[address] [facility] - Main Lab [address] [place] [address] Macey Clifton MD [address] [place] [address] Nasal congestion Social History Tobacco Use Types Packs/Day Years Used Date Smoking Tobacco: Never Smokeless Tobacco: Never Alcohol Use Standard Drinks/Week Comments Yes 0 (1 standard drink = 0.6 oz pur e alcohol) Comments Unknown Sex and Gender Information Value Date Recorded Sex Assigned at Female 06/01/2024 11:18 AM EST Legal Sex Female 2:11 AM EST Gender Identity Female 06/01/2024 11:18 AM EST Sexual Orientation Straight 06/01/2024 11 :18 AM EST documented as of this encounter Plan of Treatment Upcoming Encounters Date Type Department Care Team (Late Contact Info) Description 10/14/2024 10:00 AM EDT Office Visit Adult Medicine [address] [phone] Morgan Ronquillo PA [address] [place] [address] 10/28/2024 10:00 AM EDT Office Visit Orthopedic Surgery [facility] [address] [facility] [address] [place] [phone] Haresh Deal, DPM [address] [place] [address] 11/04/2024 8:00 AM EDT Appointment [facility] Nuclear Medicine [address] [place] [phone] 11/19/2024 10:30 AM EDT Office Visit Gastroenterology [facility] [address] [facility] [address] [place] [phone] Arlet Waldrop PA [address] [place] [address] documented as of this encounter Procedures Procedure Name Priority Date/Time Associated Diagnosis Comments CULTURE NASAL Routine 05/26/2024 12:00 AM EST Nasal congestion CULTURE THROAT Routine 05/26/2024 12:00 AM EST Nasal congestion documented in this encounter Results * (ABNORMAL) Culture nasal (05/26/2024 12:00 AM EST) Culture, Nasal Jailene albicans/du bliniensis( A) 05/30/2024 11:49 AM EST [facility] Comment: sparse The organism value for this result has been updated. These results have been appended to the previously preliminary verified report. Edited result: Previously reported as Yeast on 05/30/2024 at 1058 EST. Swab Nasal structure / Unknown 05/26/2024 05/26/2024 6:36 PM EST us Macey Clifton MD LAB MICROBIOLOGY - GENERA L ORDERABLES Final Result Performing Organization Address [facility]/ZIP Co de Phone Number [facility] [address] [place] [address], [place] [phone] * Culture throat (05/26/2024 12:00 AM EST) Culture, Throat No pathogens isolated. 05/28/2024 11:56 AM EST [facility] Swab Structure of anterior portion of neck / Unknown 05/26/2024 05/26/2024 6:36 PM EST Macey Clifton MD LAB MICROBIOLOGY - GENERA L ORDERABLES Final Result Performing Organization Address [facility] Co de Phone Number [facility] [address] [place] [address], [place] [phone] documented in this encounter Visit Diagnoses Diagnosis Nasal congestion Other diseases of nasal cavity and sinuses documented in this encounter Care Teams Sheet Writer Relationship Specialty Start Date End Date Hitesh Goldberg MD [address] [place] [id number] PCP - General Internal Medicine 03/20/21 documented as of this encounter
--- OUTSIDE RECORDS SUMMARY | 2024-10-06 11:33 | XMS_ITS | Clinical Summary ---
Author Organization [employer] Address [address] [facility] [address] [place] [address] Care Team Providers Care Warp Clamper Name Role Phone Unavailable Primary Care Provider Unavailabl e Allergies Active Allergy Reactions Criticality Noted Date Comments Aspirin 06/07/2014 Other Reaction(s): Ibuprofen allergy Other Reaction(s): Rash/Dermatitis Ibuprofen Unknown 06/22/2015 hives Medications cetirizine (ZyrTEC) 10 MG tablet Take 10 mg by mouth Once per day. 10/11/2015 Active atorvastatin (Lipitor) 20 MG tablet Take 20 mg by mouth Once per day. 08/06/2022 Active acetaZOLAMIDE (Diamox) 500 MG 12 hr capsule SMARTSI Capsule(s) By Mouth Twice Daily 10/04/2022 Active albuterol 108 (90 Base) MCG/ACT inhaler Inhale 2 puffs every 6 (six) hours if needed. 10/08/2022 Active cholecalciferol (Vitamin D-3) 25 MCG (1000 UT) capsule Take 1,000 Units by mouth Once per day. Active cyanocobalamin (Vitamin B-12) 100 MCG tablet Take 100 mcg by mouth Once per day. Active omeprazole (PriLOSEC) [address] capsule Take 20 mg by mouth 2 times daily. 08/06/2022 Active losartan (Cozaar) 25 MG tablet Take 25 mg by mouth Once per day. 07/17/2024 Active Active Problems Problem Noted Date Diagnosed Date Mass of left forearm 08/13/2022 Fatty liver 08/21/2019 Overview (09/22/2024): Seen on US report done in ER on 08/17/2019 Cough 07/22/2019 Migraine without status migrainosus, not intract able 11/12/2017 Compression fracture of L2 09/27/2017 Overview (09/22/2024): Chronic 08/2017 LS X-ray Transaminitis 09/02/2017 Overview (09/22/2024): Chronic Chronic idiopathic urticaria 07/17/2017 Overview (09/22/2024): Allergic angioedema Pseudotumor cerebri 06/22/2015 Overview (09/22/2024): Receives occasional LP to relieve symptoms Asthma 10/08/2014 Dyslipidemia 10/08/2014 Renal cyst 10/08/2014 Encounters Date Type Department Care Team Description 09/22/2024 8:00 AM EDT Office Visit [facility] [address] [place] [address] Arabella Lizarraga DDS 09/09/2024 10:00 AM EST Office Visit [facility] [address] [place] [address] Karolina Chowdhury 09/08/2024 Travel 09/07/2024 Telephone [facility] [address] [place] [address] Arabella Lizarraga DDS 09/03/2024 1:30 PM EST Office Visit [facility] [address] [place] [address] Arabella Lizarraga DDS 08/17/2024 1:30 PM EST Office Visit [facility] [address] [place] [address] Arabella Lizarraga DDS from Last 3 Months Social History Tobacco Use Types Packs/Day Years Used Date Smoking Tobacco: Never Smokeless Tobacco: Never Tobacco Cessation:Counseling Given: Not Answered Alcohol Use Standard Drinks/Week Comments Defer 0 (1 standard drink = 0.6 oz pur e alcohol) Comments Unknown Sex and Gender Information Value Date Recorded Sex Assigned at Female 08/17/2024 8:30 AM EST Legal Sex Female 1:01 PM EDT Gender Identity Female 08/17/2024 8:30 AM EST Sexual Orientation Straight 08/17/2024 1: 32 PM EST Last Filed Vital Signs Vital Sign Reading Time Taken Comments Blood Pressure 126/82 09/09/2024 9:58 AM EST Pulse - - Temperature - - Respiratory Rate - - Oxygen Saturation - - Inhaled Oxygen Concentration - - Weight - - Height - - Body Mass Index - - Plan of Treatment Health Maintenance Due Date Last Done Comments CT Colonography 1965 Colonoscopy 1965 Colorectal Cancer Screening 1965 Depression Screening 1965 FIT DNA/Cologuard 1965 FIT 1965 FOBT 1965 HIV Screening 1965 SDOH Screening 1965 Sigmoidoscopy 1965 Alcohol/Substance Use Screening 1977 Hepatitis C Screening 1983 Hepatitis A Vaccines (1 of 2 - Risk 2-dose series) 1984 Hepatitis B Vaccines (1 of 3 - 19+ 3-dose series) 1984 Pap Smear 1986 Cervical Cancer Screening 1995 HPV/Cotest 1995 Mammogram 2005 Zoster Vaccines (1 of 2) 2015 Pneumococcal Vaccine: 50+ Years (2 of 2 - PCV) 11/12/2018 11/12/2017 COVID-19 Vaccine ( - 2023-2 5 season) 2024 Influenza Vaccine (#1) 2024 DTaP/Tdap/Td Vaccines (2 - T d or Tdap) 07/09/2024 07/09/2014 Dental Oral Exam 03/13/2025 09/09/2024 Dental Prophylaxis 03/13/2025 09/09/2024 Dental X-Ray: Bitewings 09/10/2025 09/10/19 25, 08/17/2024 Tobacco Screening 09/22/2025 09/22/2024 Dental X-Ray: Full Mouth 09/11/2027 09/09/2024 RSV Patients and Patients Aged 60 years or older (1 - 1-dose 75+ series) 2040 HIB Vaccines Aged Out No longer eligi ble based on patient's age to complete this topic HPV Vaccines Aged Out No longer eligi ble based on patient's age to complete this topic IPV Vaccines Aged Out No longer eligi ble based on patient's age to complete this topic Meningococcal Vaccine Aged Out No jose joselo eligible based on patient's age to complete this topic RSV under 20 months Aged Out No longe r eligible based on patient's age to complete this topic Rotavirus Vaccines Aged Out No longer eligible based on patient's age to complete this topic Procedures Procedure Name Priority Date/Time Associated Diagnosis Comments CASE PRESENTATION, DETAILED AND EXTENSIVE TREATMENT PLANNING Routine 09/22/2024 8:00 AM EDT 20 B(V) RESIN-BASED COMPOSITE - 1 SURF, POSTERIOR Routine 09/22/2024 8:00 AM EDT 19 B(V) RESIN-BASED COMPOSITE - 1 SURF, POSTERIOR Routine 09/22/2024 8:00 AM EDT COMPREHENSIVE ORAL EVALUATION - NEW OR ESTABLISHED PATIENT Routine 09/09/2024 10:00 AM EST INTRAORAL - COMPLETE SERIES OF RADIOGRAPHIC IMAGES Routine 09/09/2024 10:00 AM EST ORAL HYGIENE INSTRUCTIONS Routine 2024 10:00 AM EST CASE PRESENTATION, DETAILED AND EXTENSIVE TREATMENT PLANNING Routine 09/09/2024 10:00 AM EST PROPHYLAXIS - ADULT Routine 09/09/2024 1 0:00 AM EST 30 O COMPOSITE FILLING Routine 12:00 AM EST 29 DOBL AMALGAM FILLING Routine 09/10/19 25 12:00 AM EST 20 DO COMPOSITE FILLING Routine 09/10/19 25 12:00 AM EST 13 MOD COMPOSITE FILLING Routine 025 12:00 AM EST 11 F(V) COMPOSITE FILLING Routine 2024 12:00 AM EST 10 ML COMPOSITE FILLING Routine 09/10/19 25 12:00 AM EST 7 L COMPOSITE FILLING Routine 09/09/2024 12:00 AM EST 3 B(V) COMPOSITE FILLING Routine 025 12:00 AM EST 2 MO COMPOSITE FILLING Routine 12:00 AM EST 9 CROWN - PORCELAIN/CERAMIC Routine 09/09/2024 12:00 AM EST 8 CROWN - PORCELAIN/CERAMIC Routine 09/09/2024 12:00 AM EST 9 PREFABRICATED POST AND CORE IN ADDITION TO CROWN Routine 09/09/2024 12:00 AM EST 8 PREFABRICATED POST AND CORE IN ADDITION TO CROWN Routine 09/09/2024 12:00 AM EST 9 ROOT CANAL Routine 09/09/2024 12:00 AM EST 8 ROOT CANAL Routine 09/09/2024 12:00 AM EST 4 B(V) COMPOSITE FILLING Routine 025 12:00 AM EST 6 F(V) COMPOSITE FILLING Routine 025 12:00 AM EST 7 M COMPOSITE FILLING Routine 09/09/2024 12:00 AM EST 7 D COMPOSITE FILLING Routine 09/09/2024 12:00 AM EST 4 MOD AMALGAM FILLING Routine 09/09/2024 12:00 AM EST 18 O COMPOSITE FILLING Routine 12:00 AM EST 18 B AMALGAM FILLING Routine 09/09/2024 12:00 AM EST 19 MODB COMPOSITE FILLING Routine 2024 12:00 AM EST 15 LO AMALGAM FILLING Routine 09/09/2024 12:00 AM EST 14 DOL AMALGAM FILLING Routine 12:00 AM EST 3 MOL AMALGAM FILLING Routine 09/09/2024 12:00 AM EST 32 EXTRACTION Routine 09/09/2024 12:00 AM EST 1 EXTRACTION Routine 09/09/2024 12:00 AM EST 17 EXTRACTION Routine 09/09/2024 12:00 AM EST 16 EXTRACTION Routine 09/09/2024 12:00 AM EST 21 EXTRACTION Routine 09/09/2024 12:00 AM EST 12 EXTRACTION Routine 09/09/2024 12:00 AM EST 28 EXTRACTION Routine 09/09/2024 12:00 AM EST 5 EXTRACTION Routine 09/09/2024 12:00 AM EST 30 B(V) RESIN-BASED COMPOSITE - 1 SURF, POSTERIOR Routine 09/03/2024 1:30 PM EST 29 B(V) RESIN-BASED COMPOSITE - 1 SURF, POSTERIOR Routine 09/03/2024 1:30 PM EST BITEWING - SINGLE RADIOGRAPHIC IMAGE Routine 08/17/2024 1:30 PM EST INTRAORAL - PERIAPICAL FIRST RADIOGRAPHIC IMAGE Routine 08/17/2024 1:30 PM EST LIMITED ORAL EVALUATION - PROBLEM FOCUSED Routine 08/17/2024 1:30 PM EST 30 DOL AMALGAM FILLING Routine 12:00 AM EST from Last 3 Months Insurance [facility] MEDICAID [address] [place] [phone]
--- OUTSIDE RECORDS SUMMARY | 2024-10-06 11:33 | XMS_ITS | Clinical Summary ---
Author Organization 175 [facility] Address [address] [place] [address] Phone Care Team Providers Care Associate Pathologist Name Role Phone Hitesh Goldberg MD Primary Care Provider [phone] Allergies Active Allergy Reactions Criticality Noted Date Comments Aspirin 06/07/2014 Other Reaction(s): Rash/Dermatitis Ibuprofen 06/22/2015 hives Medications ASCORBIC ACID, VITAMIN C, ORAL Take 1 tablet by mouth 1 (one) time each day. Active albuterol HFA (PROAIR HFA ; PROVENTIL HFA ; VENTOLIN HFA) 90 mcg/actuation inhaler Inhale 2 puffs by mouth every 6 (six) hours if needed for wheezing or shortness of breath (coughing). 3 Active cetirizine (ZyrTEC) 10 mg tablet Take 1 tablet (10 mg total) by mouth 1 (one) time each day. 6 Active cholecalciferol (VITAMIN D-3) 25 mcg (1,000 unit) capsule Take 1 capsule (1,000 Units total) by mouth 1 (one) time each day. Active cyanocobalamin (VITAMIN B-12) 100 mcg tablet Take 1 tablet (100 mcg total) by mouth 1 (one) time each day. Active gabapentin (NEURONTIN) 100 mg capsule Take 1 capsule (100 mg total) by mouth if needed. 4 Active evening primrose oil 500 mg Take 1 capsule (500 mg total) by mouth 1 (one) time each day. 4 Active DULoxetine (CYMBALTA) [address] capsule Take 1 capsule (20 mg total) by mouth 1 (one) time each day. Do not crush or chew. Active ondansetron (ZOFRAN) 4 mg tablet Take 1 tablet (4 mg total) by mouth 3 (three) times a day. 90 tablet 3 4 Active magnesium oxide (MAG-OX) 400 mg magnesium tablet Take 1 Tablet by mouth daily. Active OMEGA-3 FATTY ACIDS-FISH OIL ORAL Take by mouth daily. Active acetaZOLAMIDE (DIAMOX) 250 mg tablet Active levocetirizine (XYZAL) 5 mg tablet Take 1 tablet (5 mg total) by mouth 2 (two) times a day. 4 Active atorvastatin (LIPITOR) 20 mg tablet TAKE 1 TABLET BY MOUTH EVERY DAY 90 tablet 3 4 Active losartan (COZAAR) 25 mg tablet TAKE 1 TABLET BY MOUTH EVERY DAY 90 tablet 1 5 Active omeprazole (PriLOSEC) [address] capsuleIndications :Gastritis, unspecified, without bleeding Take 1 capsule (20 mg total) by mouth 2 (two) times a day. 180 capsule 3 5 Active erythromycin ethylsuccinate (E.E.S. Granules) 200 mg/5 mL suspension Take 5 mL (200 mg total) by mouth 4 (four) times a day (with meals and nightly) for 10 days. 200 mL 5 025 Active Problems Problem Noted Date Diagnosed Date Mass of left forearm 08/13/2022 Fatty liver 08/21/2019 Overview (05/20/2024): Seen on US report done in ER on 08/17/2019 Cough 07/22/2019 Migraine without status migrainosus, not intract able 11/12/2017 Compression fracture of L2 09/27/2017 Overview (05/20/2024): Chronic 08/2017 LS X-ray Transaminitis 09/02/2017 Overview (05/20/2024): Chronic Chronic idiopathic urticaria 07/17/2017 Overview (05/20/2024): Allergic angioedema Pseudotumor cerebri 06/22/2015 Overview (05/20/2024): Receives occasional LP to relieve symptoms Asthma 10/08/2014 Dyslipidemia 10/08/2014 Renal cyst 10/08/2014 Encounters Date Type Department Care Team Description 09/28/2024 7:27 AM EDT - 09/28/2024 11:59 PM EDT [facility] [address] [phone] Encounter for screening mammogram for breast cancer Discharge Disposition: Home or Self Care 09/02/2024 3:20 PM EST Office Visit Gastroenterology [facility] [address] [phone] Arlet Waldrop PA Retained food in stomach (Primary Dx); Gastritis, unspecified, without bleeding; Epigastric abdominal pain 09/02/2024 Telephone Gastroenterology [facility] [address] [phone] Arlet Waldrop PA 09/01/2024 12:39 PM EST Anesthesia Event [facility] [address] [place] [phone] Peterson Reaves MD Gomes, Sheldon B, MD 09/01/2024 11:10 AM EST - 09/01/2024 11:59 PM EST Hospital Encounter [facility] [address] [place] [phone] Salvador Mckinney MD Burton, Heather, CRNA Esophageal dysmotility; Hyperplastic polyps of stomach Discharge Disposition: Home or Self Care 08/11/2024 Telephone Gastroenterology [facility] 175 [facility] [address] [phone] Arlet Waldrop PA PROVIDER CALL BACK 08/04/2024 7:34 AM EST - 08/04/2024 11:59 PM EST Hospital Encounter [facility] [address] [place] [phone] Daily nausea Discharge Disposition: Home or Self Care from Last 3 Months Immunizations Name Administration Dates Next Due Pneumococcal polysaccharide 23 valent (Pneumovax 23) 2yo and older 11/12/2017 Tdap Tetanus diptheria acell ular pertussis (Boostrix; Adacel) 7yo and older 07/09/2014 Surgical History Surgery Date Site/Laterality Comments HYSTERECTOMY 1998 PROCEDURE: HISTORICAL TOTAL HYSTERECTOMY WITH BSO; COMMENT: pain, large uterus, in [place] SALPINGOOPHORECTOMY 1999 PROCEDURE: [place] LAPAROSCOPY W/RMVL ADNEXAL STRUCTURES; COMMENT: both ovaries now removed (after Hyst) SECTION PROCEDURE: HISTORICAL DELIVERY; COMMENT: three APPENDECTOMY PROCEDURE: HISTORICAL APPENDECTOMY CHOLECYSTECTOMY PROCEDURE: HISTORICAL CHOLECYSTECTOMY BREAST BIOPSY 06/2014 Left PROCEDURE: BX BREAST; PERC NEEDLE CORE W/IMAG GUID; COMMENT: benign COLONOSCOPY 10/22/14 PROCEDURE: HISTORICAL COLONOSCOPY; COMMENT: Normal colon LIPOMA RESECTION Left ARM Medical History Medical History Date Comments Pseudotumor cerebri DX:Pseudotum or cerebri Family history of breast cancer DX:Family history of breast cancer; COMMENT: [employer] genetic test neg 10/2015; low risk Asthma 10/08/2014 DX:Asthma Chronic idiopathic urticaria 07/17/2017 DX: Chronic idiopathic urticaria Dyslipidemia 10/08/2014 DX:Dyslipidemia Renal cyst 10/08/2014 DX:Renal cyst; C OMMENT: On imaging benign with no suspicious features Transaminitis 09/02/2017 DX:Transaminitis ; COMMENT: Chronic Compression fracture of L2 (CMS/HCC) 09/27/2017 DX:Compression fracture of L2 (HCC); COMMENT: Chronic 08/2017 LS X-ray Family History Medical History Relation Name Comments Lung cancer Aunt 1 paternal aunt a ge > 50 at dx; smoker Lung cancer Aunt 2 paternal aunt a ge > 50 at dx; smoker Breast cancer Aunt 3 paternal aunt Melanoma Father from it,An giosarcoma,HTN, Hyperlipidemia Diabetes Grandparent CAD (grandmothe r) Colon cancer Mother Drug/Alcohol Pr oblems,Liver Dz,Depression Prostate cancer Paternal Grandfather Other: cancer,other Uncle paternal uncle Relation Name Status Comments Aunt 1 Aunt 2 Aunt 3 Father (Age 72) Grandparent Mother (Age 62) did not di e from the cancer Paternal Grandfather Uncle Social History Tobacco Use Types Packs/Day Years Used Date Smoking Tobacco: Never Smokeless Tobacco: Never Alcohol Use Standard Drinks/Week Comments Yes 0 (1 standard drink = 0.6 oz pur e alcohol) Interpersonal Safety Answer Date Record ed Physical Abuse 09/01/2024 Verbal Abuse 09/01/2024 Comments No Sex and Gender Information Value Date Recorded Sex Assigned at Female 06/01/2024 11:18 AM EST Legal Sex Female 2:11 AM EST Gender Identity Female 06/01/2024 11:18 AM EST Sexual Orientation Straight 06/01/2024 11 :18 AM EST Obstetrics History Para Term AB IAB SAB Ectopic Multiple Livin g Live Births 3 Last Filed Vital Signs Vital Sign Reading Time Taken Comments Blood Pressure 102/74 09/02/2024 3:35 PM EST Pulse 73 09/01/2024 1:13 PM EST Temperature 35.6 ??C (96.1 ??F) 09/01/2024 12:[address] Respiratory Rate 14 09/01/2024 1:13 PM EST Oxygen Saturation 99% 09/01/2024 1:13 PM EST Inhaled Oxygen Concentration - - Weight 77.1 kg (170 lb) 09/28/2024 7:35 AM EDT Height 165.1 cm (5' 5 ) 09/28/2024 7:35 AM EDT Body Mass Index 28.29 09/28/2024 7:35 AM EDT Plan of Treatment Upcoming Encounters Date Type Department Care Team (Late st Contact Info) Description 10/14/2024 10:00 AM EDT Office Visit Adult Medicine [address] [phone] Morgan Ronquillo PA [address] [place] [phone] 10/28/2024 10:00 AM EDT Office Visit Orthopedic Surgery - [place] [address] 175 [facility] [address] [place] [phone] DealHaresh DPM 175 [facility] [address] [place] [address] 11/04/2024 8:00 AM EDT Appointment [facility] Nuclear Medicine [address] [place] [phone] 11/19/2024 10:30 AM EDT Office Visit Gastroenterology - [place] 175 [facility] 175 [facility] [address] [place] [phone] Arlet Waldrop PA 175 [facility] 200 [place] [address] Health Maintenance Due Date Last Done Comments Hepatitis B Vaccines (1 of 3 - 19+ 3-dose series) 1984 Zoster Vaccines (1 of 2) 2015 Pneumococcal Vaccine: 50+ Years (2 of 2 - PCV) 11/12/2018 11/12/2017 Pneumococcal Vaccine: Pediatrics (0 to 5 Years) and At-Risk Patients (6 to 64 Years) (2 of 2 - PCV) 11/12/2018 11/12/2017 Depression Screening 06/16/2022 HIV Screening 06/16/2022 Social Influencers of Health Screening 06/16/2022 COVID-19 Vaccine ( - 2023- season) 2024 Influenza Vaccine (#1) 2024 DTaP,Tdap,and Td Vaccines (2 - Td or Tdap) 07/09/2024 07/09/2014 Hypertension/CHF/CAD Annual BMP Blood Test 04/15/2025 04/15/2024, 04/15/2024 Colorectal Cancer Screening: Colonoscopy 05/03/2025 05/03/2020 Breast Cancer Screening 09/28/2026 09/29/19 25, 09/16/2023, 09/13/2022, Additional history exists Cholesterol Screening (Lipid Panel) 08/23/2028 08/23/2023 RSV Immunization Patients 60+ Years Old (1 - 1-dose 75+ series) 2040 Hepatitis C Screening Completed 07/20/2014 HIB Vaccines Aged Out No longer eligi ble based on patient's age to complete this topic HPV Vaccines Aged Out No longer eligi ble based on patient's age to complete this topic Hepatitis A Vaccines Aged Out No long er eligible based on patient's age to complete this topic IPV Vaccines Aged Out No longer eligi ble based on patient's age to complete this topic MMR Vaccines Aged Out No longer eligi ble based on patient's age to complete this topic Meningococcal ACWY Vaccine Aged Out N o longer eligible based on patient's age to complete this topic Meningococcal B Vacine Aged Out No lo nger eligible based on patient's age to complete this topic RSV Immunization Patients Under 20 months Aged Out No longer eligible based on patient's age to complete this topic Varicella Vaccines Aged Out No longer eligible based on patient's age to complete this topic Procedures Procedure Name Priority Date/Time Associated Diagnosis Comments MG MAMMO DIGITAL SCREENING W CORTES BILAT Routine 09/28/2024 7:46 AM EDT Encounter for screening mammogram for breast cancer EGD Routine 09/01/2024 12:52 PM EST Esophageal dysmotility Hyperplastic polyps of stomach TISSUE EXAM Routine 09/01/2024 12:47 PM EST Esophageal dysmotility Hyperplastic polyps of stomach XR UGI W AIR CONTRAST Routine 08/04/2024 8:40 AM EST Daily nausea ANNUAL BMP BLOOD TEST Routine 04/15/2024 LIPID PANEL Routine 08/23/2023 COLONOSCOPY Routine 05/03/2020 HEPATITIS C SCREENING Routine 07/20/2014 from Last 3 Months or Most Recently Relevant to Health Maintenance Results * MG Mammo Digital Screening w Cortes bilat (09/28/2024 7:46 AM EDT) Anatomical Region Laterality Modality Breast Bilateral Mammography 09/29/2024 9:44 AM EDT Impressions 09/29/2024 9:48 AM EDT No mammographic evidence of malignancy. A negative mammogram in the presence of a clinically suspicious palpable abnormality does not preclude the possibility of malignancy or alter the indications for biopsy. PQRI CPT II 3342F Code 33015, 67676 PQRI 225 CPT II 7025F TISSUE DENSITY: The breasts are almost entirely fatty. (BI-RADS ??Category A) IMPRESSION: Benign. BI-RADS CATEGORY: 1 - NEGATIVE RECOMMENDATION: Screening bilateral mammogram is recommended in 1 year. Mammo Location: [facility], [address] [place] [id number] -------- FINAL REPORT -------- Dictated By: Marcellus Dyson Dictated Date: 09/29/2024 09:44 ET Assigned Physician: Marcellus Dyson Reviewed and Electronically Signed By: Marcellus Dyson Signed Date: 09/29/2024 09:48 ET Workstation ID: [id number] Transcribed By: Self Edit Transcribed Date: 09/29/2024 09:44 ET Narrative 09/29/2024 9:48 AM EDT CLINICAL: The patient is a 59 years Female presenting for routine screening mammography. ??The patient underwent left breast biopsy in 2013, pathology benign. COMPARISON: Most recently 09/16/2023 and most remotely 07/18/2017. ?? TECHNIQUE: Full-field digital mammography of the breasts bilaterally consisting of tomosynthesis in MLO and CC projection is performed in the [facility] 2000-D unit. ??Computer aided detection utilizing the iCAD system was utilized. FINDINGS: The breasts are again seen to be largely fatty replaced. ??A tissue marker is again seen centrally in the left breast. ??A few scattered benign calcifications, including vascular calcifications, are again noted. ??There is no suspicious cluster of microcalcifications, mass, or area of architectural distortion. There is no skin thickening or nipple retraction. Procedure Note Marcellus Dyson MD - 09/29/2024 CLINICAL: The patient is a 59 years Female presenting for routinescreening mammography. The patient underwent left breast biopsy in 2013,pathology benign. COMPARISON: Most recently 09/16/2023 and most remotely 07/18/2017. TECHNIQUE: Full-field digital mammography of the breasts bilaterallyconsisting of tomosynthesis in MLO and CC projection [facility]. Computer aided detection utilizing the [employer] VaporDsystem was utilized. FINDINGS: The breasts are again seen to be largely fatty replaced. Atissue marker is again seen centrally in the left breast. A few scatteredbenign calcifications, including vascular calcifications, are again noted.There is no suspicious cluster of microcalcifications, mass, or area ofarchitectural distortion. There is no skin thickening or nippleretraction. IMPRESSION: No mammographic evidence of malignancy. A negative mammogram in the presence of a clinically suspicious palpableabnormality does not preclude the possibility of malignancy or alter theindications for biopsy. PQRI CPT II 3342F Code 18216, 79323 PQRI 225 CPT II 7025F TISSUE DENSITY: The breasts are almost entirely fatty. (BI-RADS CategoryA) IMPRESSION: Benign. BI-RADS CATEGORY: 1 - NEGATIVE RECOMMENDATION: Screening bilateral mammogram is recommended in 1 year. Mammo Location: [facility] [place] [facility], [address] [place] [phone] -------- FINAL REPORT -------- Dictated By: Marcellus Dyson Dictated Date: 09/29/2024 09:44 ET Assigned Physician: Marcellus Dyson Reviewed and Electronically Signed By: Marcellus Dyson Signed Date: 09/29/2024 09:48 ET Workstation ID: [id number] Transcribed By: Self Edit Transcribed Date: 09/29/2024 09:44 ET us Self Referral Spp[facility] IMG BI PROCEDURES Final Resul t * EGD Anesthesia - MAC; [facility] ENDOSCOPY (09/01/2024 12:52 PM EST) Anatomical Region Laterality Modality Endoscopy 09/01/2024 12:3 4 PM EST Impressions 09/01/2024 12:52 PM EST - Multiple fundic gland polyps. Biopsied. ? - A medium amount of food (residue) in the stomach. ? - The examination was otherwise normal. Recommendation: ?- Resume previous diet. ? - Continue present medications. ? - Await pathology results. Narrative 09/01/2024 12:52 PM EST [facility] GI Patient Name: Georgina Robledo Procedure Date: 09/01/2024 12:34 PM Date of : 1965 Age: 59 Room: ROOM 15 Gender: Female Note Status: Finalized Attending MD: Salvador Mckinney MD, Procedure Date No Time: 09/01/2024 Procedure: ? Upper GI endoscopy Indications: ? Abnormal UGI series Providers: ? Salvador Mckinney MD Referring MD: ?Salvador Mckinney MD Medicines: ? Monitored Anesthesia Care Complications: ? No immediate complications. Estimated Blood Loss: ? Estimated blood loss: none. Procedure: ? After obtaining informed consent, the endoscope was ? passed under direct vision. Throughout the procedure, ? the patient's blood pressure, pulse, and oxygen ? saturations were monitored continuously.The Olympus ? Gastroscope was introduced through the mouth, and ? advanced to the third part of duodenum. The upper GI ? endoscopy was accomplished without difficulty. The ? patient tolerated the procedure well. Findings: ?Multiple 3 to 5 mm sessile fundic gland polyps with no ? stigmata of recent bleeding were found in the gastric ? body. Biopsies were taken with a cold forceps for ? histology. ? A medium amount of food (residue) was found in the ? gastric body. ? The exam was otherwise without abnormality. Procedure Code(s): ? --- Professional --- ? 66442, Esophagogastroduodenoscopy, flexible, ? transoral; with biopsy, single or multiple Diagnosis Code(s): ? --- Professional --- ? K31.7, Polyp of stomach and duodenum ? R93.3, Abnormal findings on diagnostic imaging of ? other parts of digestive tract CPT copyright 2020 [employer]. All rights reserved. The codes documented in this report are preliminary and upon handling tech review may be revised to meet current compliance requirements. MD Salvador Gandara MD 09/01/2024 12:52:31 PM This report has been signed electronically.Salvador Mckinney MD Number of Addenda: 0 Note Initiated On: 09/01/2024 12:34 PM Scope In: Scope Out: ? Endoscopy Department at [facility] - [address] [place] [address], ? [place] [id number] Procedure Note Salvador Mckinney MD - 09/01/2024 [facility] GI Patient Name: Georgina Robledo Procedure Date: 09/01/2024 12:34 PM Date of : 1965 Age: 59 Room: ROOM 15 Gender: Female Note Status: Finalized Attending MD: Salvador Mckinney MD, Procedure Date No Time: 09/01/2024 Procedure: Upper GI endoscopy Indications: Abnormal UGI series Providers: Salvador Mckinney MD Referring MD: Salvador Mckinney MD Medicines: Monitored Anesthesia Care Complications: No immediate complications. Estimated Blood Loss: Estimated blood loss: none. Procedure: After obtaining informed consent, the endoscope was passed under direct vision. Throughout theprocedure, the patient's blood pressure, pulse, and oxygen saturations were monitored continuously.The Olympus Gastroscope was introduced through the mouth, and advanced to the third part of duodenum. The upperGI endoscopy was accomplished without difficulty. The patient tolerated the procedure well. Findings: Multiple 3 to 5 mm sessile fundic gland polyps withno stigmata of recent bleeding were found in thegastric body. Biopsies were taken with a cold forceps for histology. A medium amount of food (residue) was found in the gastric body. The exam was otherwise without abnormality. Procedure Code(s): --- Professional --- 10828, Esophagogastroduodenoscopy, flexible, transoral; with biopsy, single or multiple Diagnosis Code(s): --- Professional --- K31.7, Polyp of stomach and duodenum R93.3, Abnormal findings on diagnostic imaging of other parts of digestive tract CPT copyright 2020 [employer]. All rights reserved. The codes documented in this report are preliminary and upon handling tech reviewmay be revised to meet current compliance requirements. MD Salvador Gandara MD 09/01/2024 12:52:31 PM This report has been signed electronically.Salvador Mckinney MD Number of Addenda: 0 Note Initiated On: 09/01/2024 12:34 PM Scope In: Scope Out: Endoscopy Department at [facility] - [address] [place] [phone] IMPRESSION: - Multiple fundic gland polyps. Biopsied. - A medium amount of food (residue) in thestomach. - The examination was otherwise normal. Recommendation: - Resume previous diet. - Continue present medications. - Await pathology results. Salvador Mckinney MD GI~PROCEDURE ORDERABLES Final R esult * Tissue exam (09/01/2024 12:47 PM EST) Final Diagnosis Stomach, fundic gland polyp: Benign fundic gland polyp. 09/02/2024 11:34 AM EST [facility] Gross Description A. Stomach, fundic gland polyp: Labeled fundic gl stomach . Received in formalin is a soft, mayers-red, 0.35 cm in greatest diameter tissue fragment which is wrapped in paper and submitted in toto in one cassette, one piece, multiple levels. TS 09/02/2024 11:34 AM EST [facility] Disclaimer Unless otherwise specified, all tissue is 10% NB formalin fixed and paraffin embedded. 09/02/2024 11:34 AM EST [facility] Tissue Stomach structure / Unknown 09/01/2024 12:47 PM EST 09/01/2024 2:20 PM EST Salvador Mckinney MD LAB PATHOLOGY ORDERABLES Final Result [facility] [address] [place] [address], * XR UGI w Air Contrast (08/04/2024 8:40 AM EST) Anatomical Region Laterality Modality Body Radiographic Kiya ging 08/04/2024 10:5 2 AM EST Impressions 08/05/2024 4:30 PM EST 1. Mild esophageal dysmotility 2. Multiple small, round filling defects predominately along the greater curvature of the stomach, most likely hyperplastic polyps. Consider direct visualization if clinically warranted. -------- FINAL REPORT -------- Dictated By: Emelina Reyes Dictated Date: 08/04/2024 10:52 ET Assigned Physician: Yo Morrell Reviewed and Electronically Signed By: Yo Morrell Signed Date: 08/05/2024 16:30 ET Workstation ID: [id number] Transcribed By: Self Edit Transcribed Date: 08/04/2024 11:03 ET Resident/PA/CHIEF OF PLANNING: Emelina Reyes Narrative 08/05/2024 4:30 PM EST FINDINGS: Double contrast UGI performed. COMPARISON: No prior UGI imaging HISTORY: Patient is a 59-year-old female with history of epigastric pain, bloating. ACTIVITIES THERAPIST radiographs: Clinical Counselor AP radiograph of the abdomen obtained. Bowel gas pattern is nonobstructive. Visualized lung bases are clear. Surgical clips are noted to the right upper quadrant, indicating history of cholecystectomy. FINDINGS: Effervescent crystals were administered orally. Thick and thin barium was then administered orally under fluoroscopic control. Esophagus: The is mild esophageal dysmotility. Normal distensibility and mucosal pattern. There is no evidence of obstruction or hiatal hernia. Stomach: Normal distensibility and motility. Prompt passage of contrast from the stomach into the duodenal bulb and sweep. No gastric mass or ulceration. There are multiple small, round to oval, sessile mucosal defects noted predominately along the greater curvature, most likely hyperplastic polyps. Visualization of proximal small bowel is within normal limits. ?? Gastroesophageal reflux: unable to elicit Air kerma: 56.5 mGy Procedure Note Yo Morrell MD - 08/05/2024 FINDINGS: Double contrast UGI performed. COMPARISON: No prior UGI imaging HISTORY: Patient is a 59-year-old female with history of epigastric pain,bloating. ACTIVITIES THERAPIST radiographs: Clinical Counselor AP radiograph of the abdomen obtained. Bowel gaspattern is nonobstructive. Visualized lung bases are clear. Surgical clipsare noted to the right upper quadrant, indicating history ofcholecystectomy. FINDINGS: Effervescent crystals were administered orally. Thick and thinbarium was then administered orally under fluoroscopic control. Esophagus: The is mild esophageal dysmotility. Normal distensibility andmucosal pattern. There is no evidence of obstruction or hiatal hernia. Stomach: Normal distensibility and motility. Prompt passage of contrastfrom the stomach into the duodenal bulb and sweep. No gastric mass orulceration. There are multiple small, round to oval, sessile mucosaldefects noted predominately along the greater curvature, most likelyhyperplastic polyps. Visualization of proximal small bowel is withinnormal limits. Gastroesophageal reflux: unable to elicit Air kerma: 56.5 mGy IMPRESSION: 1. Mild esophageal dysmotility 2. Multiple small, round filling defects predominately along the greatercurvature of the stomach, most likely hyperplastic polyps. Consider directvisualization if clinically warranted. -------- FINAL REPORT -------- Dictated By: Emelina Reyes Dictated Date: 08/04/2024 10:52 ET Assigned Physician: Yo Morrell Reviewed and Electronically Signed By: Yo Morrell Signed Date: 08/05/2024 16:30 ET Workstation ID: [id number] Transcribed By: Self Edit Transcribed Date: 08/04/2024 11:03 ET Resident/PA/CHIEF OF PLANNING: Emelina Reyes Arlet GORMAN IMG FLUOROSCOPY PROCEDURES Fi nal Result * Annual BMP Blood Test (04/15/2024) Pathologist [facility] Annual BMP Blood Test Abstracted Historical Provider HEALTH MAINTENANCE Final Result * Lipid panel (08/23/2023) [facility] LDL/HDL Ratio 3 0 - 4 Triglycerides 100 0 - 150 mg/dL Cholesterol 175 0 - 200 mg/dL HDL 68 >=40 mg/dL LDL Cholesterol 87 0 - 100 mg/dL Blood Venous blood specimen / Unknown Historical Provider LAB BLOOD ORDERABLES Merlyn l Result * Colonoscopy (05/03/2020) Colonoscopy No Interpretation , Abstracted Anatomical Region Laterality Modality Other Historical Provider HEALTH MAINTENANCE Final Result * Hepatitis C Screening (07/20/2014) Hepatitis C Screening Abstracted us Historical Provider HEALTH MAINTENANCE Final Result from Last 3 Months or Most Recently Relevant to Health Maintenance Insurance [facility] [employer] Care Teams Associate Pathologist Relationship Specialty Start Date End Date Hitesh Goldberg MD [address] [place] [id number] PCP - General Internal Medicine 03/20/21
--- OUTSIDE RECORDS SUMMARY | 2024-10-06 11:34 | XMS_ITS | Clinical Summary ---
Author Organization [facility] Address [address] [place] [address] Care Team Providers Care Bias Binding Cutter Name Role Phone Nohemy Cardona Primary Care Provid er Unavailable Allergies Active Allergy Reactions Criticality Noted Date Comments Ibuprofen Unknown 10/16/2022 Medications acetaminophen (TYLENOL) 500 mg tablet SMARTSI Tablet(s) By Mouth 3 Times Daily 09/17/2022 Active acetaZOLAMIDE (DIAMOX) 500 mg capsule SMARTSI Capsule(s) By Mouth Twice Daily 10/04/2022 Active Ventolin HFA 90 mcg/actuation inhaler SMARTSI Puff(s) Via Inhaler Every 4 Hours PRN 10/08/2022 Active atorvastatin (LIPITOR) 20 mg tablet SMARTSI Tablet(s) By Mouth Daily 09/09/2022 Active cetirizine (ZyrTEC) 10 mg tablet SMARTSI Tablet(s) By Mouth Daily 10/05/2022 Active Flowflex COVID-19 Ag Home Test kit See admin instructions . 05/17/2022 Active cyclobenzaprine (FLEXERIL) 5 mg tablet SMARTSI Tablet(s) By Mouth Daily 08/07/2022 Active omeprazole (PriLOSEC) 20 mg capsule SMARTSI Capsule(s) By Mouth Daily 10/08/2022 Active ondansetron (ZOFRAN) 4 mg tablet SMARTSI Tablet(s) By Mouth Daily PRN 10/06/2022 Active verapamiL (CALAN) 40 mg tablet SMARTSI Tablet(s) By Mouth Every Night 07/13/2022 Active Active Problems No known active problems Social History Tobacco Use Types Packs/Day Years Used Date Smoking Tobacco: Never Smokeless Tobacco: Never Tobacco Cessation:Counseling Given: Not Answered Comments Unknown Sex and Gender Information Value Date Recorded Sex Assigned at Not on file Legal Sex Female 4:03 PM EST Gender Identity Not on file Sexual Orientation Not on file Last Filed Vital Signs Vital Sign Reading Time Taken Comments Blood Pressure 137/88 10/16/2022 7:37 AM EDT Pulse 71 10/16/2022 7:37 AM EDT Temperature - - Respiratory Rate - - Oxygen Saturation - - Inhaled Oxygen Concentration - - Weight - - Height - - Body Mass Index - - Plan of Treatment Health Maintenance Due Date Last Done Comments Cervical Cancer Screening 1965 Cologuard 1965 Colon Cancer Screening 1965 Colonoscopy 1965 FOBT / Fit Test 1965 HIV Screening 1965 HPV and Pap Smear 1965 Hepatitis C Screening 1965 Pap Smear 1965 Sigmoidoscopy 1965 Hepatitis B Vaccines (1 of 3 - 19+ 3-dose series) 06/08 Mammogram 2005 Zoster Vaccines (1 of 2) 2015 Pneumococcal Vaccine: 50+ Years (2 of 2 - PCV) 019 11/12/2017 COVID-19 Vaccine (1 - 2023- season) 2024 Influenza Vaccine (#1) 2024 Alcohol/Substance Use Screening 07/08/2024 Depression Screening and Follow-Up 07/08/2024 Social Drivers of Health Annual Screening 07/08/2024 DTaP,Tdap,and Td Vaccines (2 - Td or Tdap) 07/09/2024 07/09/2014 RSV Vaccine (60+ years old a nd patients) (1 - 1-dose 75+ series) 2040 Insurance [employer] Care Teams Bias Binding Cutter Relationship Specialty Start Date End Date Nohemy Cardona [address] [place] [id number] PCP - General Internal Medicine 08/20/22
--- OUTSIDE RECORDS SUMMARY | 2024-10-06 11:34 | XMS_ITS | Referral Summary ---
Author Organization [facility] Address [address] [place] [address] Care Team Providers Care Claim Investigator Name Role Phone Nohemy Cardona Primary Care [...] Mass Index - - Plan of Treatment Not on file Insurance [employer] Care Teams Claim Investigator Relationship Specialty Start Date End Date Nohemy Cardona [address] [place] [address] PCP - General Internal Medicine 08/20/22
== END 2024-10-06 09:54 | disposition home or self-care (01) ==
LOC: HO.LAB 09:53
PROVIDERS: PCP Internal Medicine; Visit Provider Internal Medicine Infectious Disease
DX: E66.9 Obesity, unspecified (principal)
CPT/HCPCS: 36415; 80053; 80061